=== PATIENT | female | born 1990 | race Hispanic/Latino ===

== ENCOUNTER 2017-05-11 23:53 | Emergency (ER) | payer OTHER ==
[2017-05-12 00:54] LABS: #Basophils 0.1 thou/uL (0.0-0.2); #Eosinphils 0.1 thou/uL (0.0-0.7); #Lymphocytes 2.8 thou/uL (1.20-3.40); #Monocytes 0.4 thou/uL (0.11-0.59); %Basophils 1.5 % (0.0-1.0); %Eosinophils 1.8 % (0.0-10.0); %Lymphocytes 43.6 % (21.0-51.0); %Monocytes 5.6 % (0.0-10.0); Hematocrit 37.5 % (36.0-47.0); Mean Platelet Volume 6.5 fL (7.4-10.4); Red Blood Cell (RBC) Count 3.86 mill/uL (4.20-5.40); White Blood Cell (WBC) Count 6.4 thou/uL (4.8-10.8)
[2017-05-12 01:08] LABS: Acetaminophen Less than 6.0 mcg/mL (10.0-30.0); CK (CPK) 125 U/L (29-168); Salicylate Less than 8.0 mg/dL (15.0-30.0)
[2017-05-12 01:10] LABS: ALT (SGPT) 14 U/L (8-55); AST (SGOT) 14 U/L (5-34); Alkaline Phosphatase 110 U/L (40-150); Anion Gap 13 mmol/L (10-20); BUN (Urea Nitrogen) 6 mg/dL (7.0-18.7); Bilirubin, Total Less than 0.2 mg/dL (0.2-1.2); Calc. Creatinine Clearance 0 mL/min (70-130); Calcium 8.3 mg/dL (7.8-10.44); Carbon Dioxide 19 mmol/L (22-29); Chloride 112 mmol/L (98-107); Estimated GFR-MDRD Greater than 90; Globulin 3.3 g/dL (2.4-3.5)
[2017-05-12 01:39] LABS: Bilirubin Negative (Negative); Blood, Urine Small (Negative); Glucose, Urine (Dipstick) Negative (Negative); Ketone, Urine Negative (Negative); Nitrite Negative (Negative); Protein, Urine (Dipstick) Negative (Neg-Trace); Urobilinogen 0.2 mg/dL (0.2-1.0)
[2017-05-12 01:46] LABS: Bacteria/HPF Rare-Few HPF (None Seen); Hyaline Casts/LPF 0-3 HYALINE CAST LPF (0-3 Hyaline); RBC/HPF 0-3 HPF (0-3); Squamous Epithelial 0-3 HPF (0-3); WBC/HPF 0-3 HPF (0-3)
[2017-05-12 01:58] LABS: Amphetamine Not Detected (NotDetected); Methadone Not Detected (NotDetected); Methamphetamine Not Detected (NotDetected)
== END 2017-05-12 01:46 | disposition home or self-care (01) ==
LOC: ERS 23:53
DX: F32.9 Major depressive disorder, single episode, unspecified (principal); Z79.899 Other long term (current) drug therapy
CPT/HCPCS: 36415; 80053; 80306; 80307; 81003; 81015; 81025; 82550; 84443; 85025; 93005

== ENCOUNTER 2017-05-18 03:20 | Inpatient (IN) | payer OTHER ==
[2017-05-18 04:18] LABS: #Basophils 0.1 thou/uL (0.0-0.2); #Eosinphils 0.2 thou/uL (0.0-0.7); #Lymphocytes 2.6 thou/uL (1.20-3.40); #Monocytes 0.5 thou/uL (0.11-0.59); #Neutrophils 3.9 thou/uL (1.40-6.50); %Eosinophils 2.1 % (0.0-10.0); %Lymphocytes 36.1 % (21.0-51.0); %Monocytes 7.4 % (0.0-10.0); Hematocrit 37.6 % (36.0-47.0); Mean Platelet Volume 6.7 fL (7.4-10.4); Red Blood Cell (RBC) Count 3.86 mill/uL (4.20-5.40); White Blood Cell (WBC) Count 7.3 thou/uL (4.8-10.8)
[2017-05-18 04:28] LABS: Bilirubin Negative (Negative); Blood, Urine Trace (Negative); Glucose, Urine (Dipstick) Negative (Negative); Ketone, Urine Negative (Negative); Nitrite Negative (Negative); Protein, Urine (Dipstick) Negative (Neg-Trace); Urobilinogen 0.2 mg/dL (0.2-1.0)
[2017-05-18 04:31] LABS: Bacteria/HPF None Seen HPF (None Seen); Hyaline Casts/LPF 0-3 HYALINE CAST LPF (0-3 Hyaline); Squamous Epithelial 0-3 HPF (0-3); WBC/HPF None Seen HPF (0-3)
[2017-05-18 04:31] LABS: ALT (SGPT) 13 U/L (8-55); AST (SGOT) 12 U/L (5-34); Alkaline Phosphatase 102 U/L (40-150); Anion Gap 13 mmol/L (10-20); BUN (Urea Nitrogen) 4 mg/dL (7.0-18.7); Bilirubin, Total Less than 0.2 mg/dL (0.2-1.2); Calc. Creatinine Clearance 0 mL/min (70-130); Calcium 8.3 mg/dL (7.8-10.44); Carbon Dioxide 19 mmol/L (22-29); Chloride 112 mmol/L (98-107); Estimated GFR-MDRD Greater than 90; Globulin 3.2 g/dL (2.4-3.5); Protein, Total 6.8 g/dL (6.0-8.3)
[2017-05-18 04:32] LABS: Acetaminophen Less than 6.0 mcg/mL (10.0-30.0); CK (CPK) 174 U/L (29-168); Salicylate Less than 8.0 mg/dL (15.0-30.0)
[2017-05-18 04:48] LABS: Amphetamine Not Detected (NotDetected); Methadone Not Detected (NotDetected); Methamphetamine Not Detected (NotDetected)
[2017-05-18] MEDS ORDERED: Pot Chloride/Pot Bicarb/Cit Ac 25 mEq Effervescent Tablet ONE (05:57)
--- NOTE | 2017-05-18 08:07 | HP-2 ---
CODE STATUS: FULL. PRIMARY CARE PHYSICIAN: [place]. ATTENDING: Filomena Montano D.O. RESIDENT: Mario Sadler D.O. HISTORIAN: Patient/EMS. CHIEF COMPLAINT: Suicide attempt. HISTORY OF PRESENT ILLNESS: This is a 27-year-old female who presents to the emergency department via EMS. She is a poor historian, prone to histrionics; however, she states that she was at a sikhism earlier in the evening to be healed for her seizures. After going home she got into a fight with her father and came to the ER because "nobody cares about her and she wanted to find out if people did care about her." She denies any alcohol or pill ingestion. She states that she does have a history with alcohol, but did not drink yesterday or this evening. She was seen in the ER, found to be hypotensive and responsive to a fluid resuscitation. Additionally, her [facility] skid adzer saw her in the ER. There is a concern by the ED doctor that her blood pressure was going to continue to be low and she needed to be observed for the blood pressure. Per the history that the emergency department physician got from, she took an unknown amount of clonazepam during the night in addition to drinking an unknown amount of alcohol. PAST MEDICAL HISTORY: Seizure disorder. ALLERGIES: No known drug allergies. MEDICATIONS: Clonazepam 2 mg b.i.d. and carbamazepine of unknown dose. SOCIAL HISTORY: She has a history of binge drinking. She denies any drug use. REVIEW OF SYSTEMS: She would not respond directly to any review of systems questions. PHYSICAL EXAMINATION: VITAL SIGNS: Blood pressure is 94/74, pulse 81, respiratory rate 19, T-max 97.5 , pulse ox 100% on room air, current weight 94 kilograms. GENERAL: The patient is alert and oriented x2 and in no apparent distress. HEENT: EOMI. Conjunctivae are within normal limits. She has horizontal nystagmus both left and right. CARDIOVASCULAR: Regular rate and rhythm without murmur or gallops. RESPIRATORY: Normal effort. LUNGS: Clear to auscultation bilaterally. No retractions. SKIN: Warm and dry. ABDOMEN: Soft with left upper quadrant tenderness. Bowel sounds in all quadrants. There is no mass or distention. EXTREMITIES: There is no edema. MUSCULOSKELETAL: Tone is normal. NEUROLOGIC: No focal neurological deficits. Cranial nerves II-XII are grossly intact. LABORATORY DATA: Hemoglobin 12.6, hematocrit 37.3, white count 7.3, platelets 301, MCV 97.6. CMP: Sodium 141, potassium 3.2, chloride 112, bicarbonate 19, BUN 4, creatinine 0.61, glucose 132, calcium 8.3, total serum protein 6.8, albumin 3.6, AST 12, ALT 13, alkaline phosphatase 102, total bilirubin less than 0.2. ETOH was initially 99 and is now 66. UDS is clear. CK 174. TSH 1.71. UA; specific gravity 1.007, blood trace, protein negative, leukocyte esterase negative, nitrites negative, ketones negative, glucose negative, RBCs 4 -6. No WBCs, no bacteria. EKG shows normal sinus rhythm. ASSESSMENT AND PLAN: This is a 27-year-old female with apparent alcohol intoxication. 1. Alcohol intoxication; ASE protocol without benzos. 2. Hypotension. Continue fluid resuscitation. Monitor. 3. Hypokalemia. She has been given 25 mEq in the ED. Monitor BMP. 4. Suicide attempt. Consult [facility]. They are aware that she is in the emergency room, she has had multiple previous suicide attempts. 5. Seizure disorder, states that she takes an unknown dose of carbamazepine. She usually has seizures during her menstrual cycle. Monitor for seizure and attempt to find her dose. MTDD
[2017-05-18 08:20] VITALS: BMI 39.0
[2017-05-18] MEDS ORDERED: Magnesium Sulfate 1 GM, Admixture Fee 1 EACH in Sodium Chloride 0.9% 100 ML IVPB SCH (09:00)
[2017-05-18] MEDS ORDERED: Thiamine HCl 200 MG/2 ML VIAL IM SCH (09:00)
[2017-05-18] MEDS ORDERED: Potassium Chloride 20 MEQ TAB PO SCH ×2 (11:00→11:15)
[2017-05-18] MEDS: Multivitamin W/ Minerals 1 TAB PO SCH (11:08)
[2017-05-18] MEDS: Sodium Chloride 0.9% 1,000 ML IV SCH ×5 (11:08→22:30)
[2017-05-18] MEDS: Folic Acid 1 MG TAB PO SCH (11:08)
--- NOTE | 2017-05-18 14:26 | HP ---
DATE OF SERVICE: 05/18/2017 CHIEF COMPLAINT: Overdose. HISTORY OF PRESENT ILLNESS: The patient is a 27-year-old female with a past medical history of radha r depression with past suicide attempts as well as a seizure disorder who presented to the emergency room via EMS after taking pills. The patient is a poor historian, but has changed her story depend ing on who she is talking to. It appears that the patient at one point told somebody that she took clonazepam, then called the ER and was brought in. This morning, she denies that the medication was clonazepam, but states that she did take a bunch of pills, but they were green pills and she does n ot know what they are called. The patient did drink overnight and have an elevated alcohol level wh en she got to the ER. In the ER, the patient was mildly hypotensive, which was responding to fluid boluses. Her [facility] furnace feeder happened to be in the ER when she came in and apparently has made init ial contact with the patient. She tells us that she just wanted to find out if somebody left her, c ared for her and that is why she took the pills. Her only other complaint at this time is some naus ea. She states that she vomited, but per nursing, she has not thrown up yet. PAST MEDICAL HISTORY: For the full past medical history, please see the resident's dictation. PHYSICAL EXAMINATION: VITAL SIGNS: Temperature 97.8, pulse 92, respiration rate 16, O2 sat 100% on room air, blood pressu re 91/62. GENERAL: The patient is awake, alert, and oriented to person and place, in no acute distress. EYES: The patient has mild horizontal nystagmus. Pupils are reactive to light and accommodation. Extraocular muscles are intact. ENT: Oropharynx and nasopharynx are without erythema or exudate. NECK: Supple without lymphadenopathy, thyromegaly or bruits. CARDIOVASCULAR: Regular rate and rhythm without murmurs, gallops, or rubs. LUNGS: Clear to auscultation bilaterally without wheezing or rhonchi. ABDOMEN: Soft, nontender to palpation with bowel sounds present in four quadrants. Of note, she di d have some left upper quadrant tenderness with Dr. Sadler overnight, but she is not tender at this time. EXTREMITIES: There is no clubbing, cyanosis or edema. MUSCULOSKELETAL: Patient has full range of motion of all extremities. Muscle strength is 5/5. NEUROLOGIC: Cranial nerves II through XII are grossly intact. LABORATORY DATA: 1. CBC: WBC 7.3, hemoglobin 12.6, hematocrit 37.6, and platelet count 301. 2. CMP: Sodium 141, potassium 3.2, chloride 112, bicarbonate 19, BUN 4, creatinine 0.61, glucose 1 32, calcium 8.3, total bilirubin less than 0.2. AST 12, ALT 13, alkaline phosphatase 102, total pro tein 6.8, albumin 3.6. 3. TSH 1.7096. 4. CK 174. 5. Urinalysis significant for trace blood. 6. Urine test negative. 7. Salicylate and acetaminophen are negative. Plasma alcohol was initially 99 and has decreased to 66. 8. Carbamazepine level 7.5. 9. UDS negative. ASSESSMENT AND PLAN: 1. Suicide attempt with overdose: The patient has been monitored in the IMCU. When she becomes me dically stable, we will consult [facility]. 2. Alcohol intoxication: The patient's blood alcohol level is decreasing. We will monitor for sig ns of withdrawal and DTs. 3. Hypokalemia: Patient's potassium is being replaced. 4. Seizure disorder. Per report, she has seizures around her menstrual period. We will try to fin d out the dose of her carbamazepine. 5. Please see the resident's dictation for the full history and physical, assessment and plan.
[2017-05-18] MEDS ORDERED: Ziprasidone 20 MG VIAL IM PRN (17:16)
[2017-05-18] MEDS ORDERED: Sterile Water 10 ML VIAL FS PRN ×2 (17:27→18:12)
[2017-05-18] MEDS ORDERED: Ziprasidone 20 MG VIAL IM SCH (18:15)
[2017-05-19] MEDS: Sodium Chloride 0.9% 1,000 ML IV SCH ×3 (05:19→20:53)
[2017-05-19 07:58] LABS: #Basophils 0.1 thou/uL (0.0-0.2); #Eosinphils 0.1 thou/uL (0.0-0.7); #Lymphocytes 1.9 thou/uL (1.20-3.40); #Monocytes 0.3 thou/uL (0.11-0.59); %Eosinophils 1.9 % (0.0-10.0); %Lymphocytes 34.5 % (21.0-51.0); %Monocytes 6.1 % (0.0-10.0); Hematocrit 36.9 % (36.0-47.0); Mean Platelet Volume 6.7 fL (7.4-10.4); Red Blood Cell (RBC) Count 3.75 mill/uL (4.20-5.40); White Blood Cell (WBC) Count 5.4 thou/uL (4.8-10.8)
[2017-05-19 08:17] LABS: ALT (SGPT) 10 U/L (8-55); AST (SGOT) 12 U/L (5-34); Alkaline Phosphatase 101 U/L (40-150); Anion Gap 11 mmol/L (10-20); BUN (Urea Nitrogen) 5 mg/dL (7.0-18.7); Bilirubin, Total 0.2 mg/dL (0.2-1.2); Calc. Creatinine Clearance 194 mL/min (70-130); Calcium 8.3 mg/dL (7.8-10.44); Carbon Dioxide 20 mmol/L (22-29); Chloride 113 mmol/L (98-107); Estimated GFR-MDRD Greater than 90; Protein, Total 6.3 g/dL (6.0-8.3)
[2017-05-19] MEDS ORDERED: Magnesium Oxide 400 MG TAB PO SCH (09:00)
[2017-05-19] MEDS ORDERED: FLU VACC QS2017-18 36 mo. & older 0.5 ML SYRINGE IM ONE (09:00)
[2017-05-19] MEDS: Folic Acid 1 MG TAB PO SCH (09:16)
[2017-05-19] MEDS: Multivitamin W/ Minerals 1 TAB PO SCH (09:16)
--- NOTE | 2017-05-19 10:01 | PDOC.FM ---
- Subjective Subjective: Patient doing well this morning. she denies any nausea, vomitting or diarrhea this morning. Denies abdominal pain. She states that her mood is better. - Objective MAR Reviewed: Yes Vital Signs & Weight: Vital Signs (12 hours) Temp Pulse Resp BP Pulse Ox 05/19/17 07:54 97.8 F 85 18 103/75 96 05/19/17 03:23 98.4 F 80 14 99/57 L 95 05/18/17 23:42 98.3 F 82 14 95/62 95 Weight Weight 96.887 kg I&O: 05/18/17 05/19/17 05/20/17 06:59 06:59 06:59 Intake Total 4272 Output Total 1020 Balance 3252 Result Diagrams: 05/19/17 07:39 05/19/17 07:39 EKG Reviewed by me: Yes Radiology Reviewed by me: Yes <Eze Vogel - Last Filed: 05/19/17 10:00> - Objective Vital Signs & Weight: Vital Signs (12 hours) Temp Pulse Resp BP Pulse Ox 05/19/17 07:54 97.8 F 85 18 103/75 96 05/19/17 07:53 97.8 F 85 18 97 05/19/17 03:23 98.4 F 80 14 99/57 L 95 Weight Weight 96.887 kg I&O: 05/18/17 05/19/17 05/20/17 06:59 06:59 06:59 Intake Total 4272 Output Total 1020 Balance 3252 Result Diagrams: 05/19/17 07:39 05/19/17 07:39 <Nupur Kunz - Last Filed: 05/19/17 14:49> Phys Exam - Physical Examination Constitutional: NAD HEENT: PERRLA, moist MMs Respiratory: no wheezing, no rales, no rhonchi, clear to auscultation bilateral Cardiovascular: RRR, no significant murmur, no rub Gastrointestinal: soft, non-tender, no distention, positive bowel sounds Musculoskeletal: no edema, pulses present Neurological: non-focal, normal sensation, moves all 4 limbs Psychiatric: A&O x 3 Deviation from normal: Patient's mood and affect is mildly depressed but she shows signs of improv smiles occasionally Skin: no rash <Eze Vogel - Last Filed: 05/19/17 10:00> Dx/Plan (1) Suicide attempt by drug ingestion Code(s): T50.902A - POISONING BY UNSP DRUG/MEDS/BIOL SUBST, SELF-HARM, INIT Status: Acute Qualifiers: Encounter type: initial encounter Qualified Code(s): T50.902A - Poisoning by unspecified drugs, medicaments and biological substances, intentional self- harm, initial encounter Plan: Per as well as family and patient can answer, she ingested a few lisinopril and zonesamide. She also was drinking alcohol, with initial level at 99. UDS was negative for everything, including benzodiazapines. She has had repeat labs this morning that were all WNL, including plasma etoh. Now medically cleared and will consult [facility]. (2) Alcohol intoxication Status: Resolved Plan: confirmed resolution today with plasma alcohol level. will continue oral thiamine (3) Hypokalemia Code(s): E87.6 - HYPOKALEMIA Status: Resolved (4) Seizure disorder Code(s): G40.909 - EPILEPSY, UNSP, NOT INTRACTABLE, WITHOUT STATUS EPILEPTICUS Status: Acute Plan: Patient takes her home carbamazepine and zonesimide. Will continue as outpatient. - Plan Plan: Medically cleared. Awaiting [facility] consultation <Eze Vogel - Last Filed: 05/19/17 10:00> Attending Addendum - Attending Addendum I personally evaluated the patient and discussed the management with Dr. Vogel. I agree with the History, Examination, Assessment and Plan documented above with any addition or exceptions noted below. The patient is feeling much better today. She notes that her mood is improved. Alcohol level back to normal. She is medically cleared. Will consult [facility]. <Nupur Kunz - Last Filed: 05/19/17 14:49>
[2017-05-19 15:45] VITALS: TEMP 98.5
[2017-05-19 20:23] VITALS: BP 107/72
--- NOTE | 2017-05-20 13:34 | DIS-2 ---
DATE OF ADMISSION: 05/18/2017 DATE OF DISCHARGE: 05/19/2017 ADMITTING ATTENDING: Dr. Nupur Kunz. DISCHARGE ATTENDING: Dr. Nupur Kunz. RESIDENT: Marbin Vogel M.D. PRIMARY CARE PHYSICIAN: Ker[place], [place]. CONSULTANTS: [facility], which patient also sees as an outpatient. PRIMARY DIAGNOSIS: Suicide attempt from pill and alcohol ingestion. SECONDARY DIAGNOSES: 1. Alcohol intoxication. 2. Hypokalemia, resolved. 3. Seizure disorder, stable. DISCHARGE MEDICATIONS: 1. Carbamazepine 600 mg p.o. b.i.d. 2. Zonisamide 300 mg p.o. q.a.m. 3. Zonisamide 400 mg p.o. at bedtime. 4. Citalopram 40 mg p.o. b.i.d. HOSPITAL COURSE: This is a 27-year-old female with history of depression and previous suicide attem pts who presented to the emergency department via EMS. She came after calling EMS after having dran k significant alcohol and taking unknown pills at the time of admission. On admission, she was foun d to have an alcohol level of 99. UDS was negative for all tested substances including benzodiazepi arianna, which had been initial best guess to what she might have taken. She was transferred to the [facility] for further workup of her overdose. At this point, she was still unknown what the medications wer e. Family was involved the next day and indicated that it was likely she took several pills of zoni samide and a different family member's lisinopril. The patient was continued to given fluids, had p otassium repleted, became less drowsy over the day and by the next morning felt back to normal. Fro m a medical standpoint, no nausea, vomiting, diarrhea or abdominal pain. She had normal mentation, was still feeling depressed and had some suicidal ideation. [facility] was consulted after this because s he was medically cleared. They recommended inpatient psychiatric treatment for continued suicidal i deation. DISCHARGE CONDITION: Medically cleared, but still in need of psychiatric treatment. Transferred to [facility]. Physician to physician checkout was given by Dr. Eze Vogel to Dr. Bess. DISCHARGE DIET: Regular. PRECAUTIONS: Recommend continued suicide precautions.
== END 2017-05-20 02:43 | DRG 918 ==
LOC: ERS 03:20 → IMCU/EMU 08:02
PROVIDERS: ADMIT Family Medicine; ATTEND Family Medicine
DX: T50.902A Poisoning by unspecified drugs, medicaments and biological substances, intentional self-harm, initial encounter (principal); I95.9 Hypotension, unspecified; T51.0X2A Toxic effect of ethanol, intentional self-harm, initial encounter; E87.6 Hypokalemia; G40.909 Epilepsy, unspecified, not intractable, without status epilepticus; F10.120 Alcohol abuse with intoxication, uncomplicated; F31.9 Bipolar disorder, unspecified
CPT/HCPCS: 36415; 80053; 80156; 80306; 80307; 81003; 81015; 81025; 82550; 84443; 85025; 93005; 96360; 96361; J3475; J7050

== ENCOUNTER 2017-07-07 19:36 | Inpatient (IN) | payer OTHER ==
[2017-07-07] MEDS ORDERED: Activated Charcoal/Sorbitol 25 GM/120 ML TUBE ONE ×2 (20:14→20:15)
[2017-07-07 20:28] LABS: #Basophils 0.1 thou/uL (0.0-0.2); #Eosinphils 0.2 thou/uL (0.0-0.7); #Lymphocytes 3.3 thou/uL (1.20-3.40); #Monocytes 0.4 thou/uL (0.11-0.59); #Neutrophils 3.3 thou/uL (1.40-6.50); %Basophils 1.2 % (0.0-1.0); %Eosinophils 2.3 % (0.0-10.0); %Lymphocytes 45.2 % (21.0-51.0); %Monocytes 5.9 % (0.0-10.0); Hematocrit 38.3 % (36.0-47.0); Mean Platelet Volume 6.7 fL (7.4-10.4); Red Blood Cell (RBC) Count 3.89 mill/uL (4.20-5.40); White Blood Cell (WBC) Count 7.3 thou/uL (4.8-10.8)
[2017-07-07 20:44] LABS: Acetaminophen Less than 6.0 mcg/mL (10.0-30.0); Magnesium 2.1 mg/dL (1.6-2.6); Salicylate Less than 8.0 mg/dL (15.0-30.0)
[2017-07-07 20:45] LABS: ALT (SGPT) 13 U/L (8-55); AST (SGOT) 15 U/L (5-34); Alkaline Phosphatase 99 U/L (40-150); Anion Gap 17 mmol/L (10-20); BUN (Urea Nitrogen) 4 mg/dL (7.0-18.7); Bilirubin, Total Less than 0.2 mg/dL (0.2-1.2); CK (CPK) 215 U/L (29-168); Calc. Creatinine Clearance 0 mL/min (70-130); Calcium 8.1 mg/dL (7.8-10.44); Carbon Dioxide 16 mmol/L (22-29); Chloride 115 mmol/L (98-107); Estimated GFR-MDRD Greater than 90; Globulin 3.3 g/dL (2.4-3.5); Protein, Total 7.1 g/dL (6.0-8.3)
[2017-07-07] MEDS ORDERED: Lorazepam 2 MG/ML VIAL ONE (20:54)
--- NOTE | 2017-07-07 21:34 | RAD ---
CHEST 1 VIEW: Date: 07/07/17 HISTORY: Overdose. COMPARISON: Chest 1 view dated 07/15/11. FINDINGS: Lungs are clear. No pneumothorax or effusion. Cardiac silhouette and mediastinal contour within jl l limits. There appears to be a vagal nerve stimulator. IMPRESSION: No acute intrathoracic abnormality. POS: [facility]
[2017-07-07] MEDS ORDERED: Ondansetron HCl/PF 4 MG/2 ML Vial IVP PRN (23:10)
[2017-07-07] MEDS ORDERED: Acetaminophen 325 MG TAB PO PRN (23:10)
--- NOTE | 2017-07-07 23:10 | PDOC.EVN ---
Event Note - Event Note Event Note: [id number] H&P Dictated 1. Intetional drug overdose 2. H/O Bipolar disorder 3. Metabolic acidosis plan: see orders
[2017-07-07] MEDS ORDERED: Sodium Chloride 0.9% 1,000 ML IV SCH (23:30)
[2017-07-08] MEDS ORDERED: Lorazepam 2 MG/ML VIAL SLOW IVP PRN (00:11)
[2017-07-08 00:37] VITALS: BMI 36.7
[2017-07-08 05:22] LABS: #Basophils 0.1 thou/uL (0.0-0.2); #Eosinphils 0.1 thou/uL (0.0-0.7); #Lymphocytes 1.9 thou/uL (1.20-3.40); #Monocytes 0.4 thou/uL (0.11-0.59); #Neutrophils 2.4 thou/uL (1.40-6.50); %Basophils 1.5 % (0.0-1.0); %Eosinophils 2.3 % (0.0-10.0); %Lymphocytes 39.1 % (21.0-51.0); %Monocytes 7.4 % (0.0-10.0); Hematocrit 33.9 % (36.0-47.0); Mean Platelet Volume 6.7 fL (7.4-10.4); Red Blood Cell (RBC) Count 3.45 mill/uL (4.20-5.40); White Blood Cell (WBC) Count 4.8 thou/uL (4.8-10.8)
[2017-07-08 05:39] LABS: Anion Gap 12 mmol/L (10-20); BUN (Urea Nitrogen) Less than 4 mg/dL (7.0-18.7); Calc. Creatinine Clearance 147 mL/min (70-130); Calcium 7.8 mg/dL (7.8-10.44); Carbon Dioxide 18 mmol/L (22-29); Chloride 115 mmol/L (98-107); Estimated GFR-MDRD 78
--- NOTE | 2017-07-08 06:13 | HP ---
DATE OF ADMISSION: 07/07/2017 CHIEF COMPLAINT: Drug overdose. HISTORY OF PRESENT ILLNESS: Patient is 27-year-old female with past medical history of bipolar disor jeffery, schizophrenia, depression, history of prior suicide attempt came to the ER because of intentiona l drug overdose. Patient said she had a fight with her father and wants to hurt herself, so she took 20 tablets of Tegretol and 20 tablets of zonisamide after taking the tablets patient told her father , so patient was brought to the ER. Upon ER arrival, ED physician evaluate the patient and the patie nt was given charcoal. ED physician did discussed to the Poison Control. Poison Control recommended to monitor patient's serum Tegretol levels. Patient currently denies any trouble breathing, denies any chest pain, denies any nausea, denies any vomiting. Patient was initially agitated, so patient w as given Ativan 1 mg IV push in the ER per ED physician. PAST MEDICAL HISTORY: As per HPI. PAST SURGICAL HISTORY: Reviewed. SOCIAL HISTORY: Positive for smoking, denies alcohol, denies any drugs. FAMILY HISTORY: Denies any depression. SOLIDS CONTROL TECHNICIAN HISTORY: She is 2, para 1, last menstrual period was approximately last month. MEDICATIONS: Reviewed. REVIEW OF SYSTEMS: Constitutional: Denies any fever, denies any chills. Eyes: Denies vision probl ems. Ears: Denies any hearing loss. Neck: Denies any neck pain. Cardiovascular System: Denies a ny chest pain, denies palpitations. Respiratory system: Denies any cough, denies any sputum product ion. Gastrointestinal: Denies any nausea, vomiting. Integumentary: Denies any rash. Genitourinar y: Denies dysuria. Musculoskeletal: Denies any joint deformities. Psychiatric: Denies anxiety. All other review of systems are reviewed and are negative. PHYSICAL EXAMINATION: CONSTITUTIONAL/VITAL SIGNS: At the time of H&P performed, blood pressure is 110/70, afebrile, pulse ox 97% on room air. GENERAL: The patient appears comfortable. HEENT: Pupils are equal, round, and reactive to light. Anterior nares patent. Nose normal. Ears n ormal. Teeth intact. Tongue is moist. NECK: Supple, no JVD. CARDIOVASCULAR SYSTEM: S1, S2 present. Regular rate and rhythm. No murmurs, no rubs, no gallops. RESPIRATORY SYSTEM: No wheezing, no rhonchi. Breath sounds bilaterally. GASTROINTESTINAL: Abdomen is soft, nontender, no guarding, no organomegaly, no masses felt. MUSCULOSKELETAL: No edema. INTEGUMENTARY: No rashes seen. PSYCHIATRIC: Mood is appropriate at this time. CRANIAL NERVE SYSTEM: Cranial nerves intact. Follows commands. Strength intact. Sensory intact. PSYCHIATRIC: Mood appropriate at this time. LABORATORY DATA: At the time of admission, white count 7.3, hemoglobin 13, and platelet count is 230 . Sodium 144, potassium 2.7, chloride 115, CO2 is 16, BUN of 14, creatinine 0.58. Creatine kinase i s 215. AST 15, ALT 13. Tegretol level 13.6, salicylates less than 8. ASSESSMENT AND PLAN: The patient is a 27-year-old female: 1. Intentional drug overdose. Plan to consult psych to evaluate the patient. Plan to place the pat ient on 24 hours . Plan to admit the patient to IMU, status post charcoal in the patient. We w ill monitor the patient closely. Plan to check Tegretol levels q.6 hours as recommended by Poison Co ntrol. 2. Metabolic acidosis, mild gap acidosis. Monitor bicarb level. Continue IV fluids. Check BMP in few hours, if it starts to worsen, we will start the patient on bicarbonate drip. No need at this ti me. We will check lactic acid level also. 3. History of bipolar disorder, schizophrenia. Monitor the patient closely. 4. History of anxiety. Plan anxiolytics. Case was discussed in detail with the patient.
[2017-07-08] MEDS: Enoxaparin Sodium 40 MG/0.4 ML SYRINGE SC SCH (09:22)
[2017-07-08] MEDS: Dextrose 5 %-0.45 % NaCl 1,000 ML IV SCH (12:49)
--- NOTE | 2017-07-08 21:05 | PDOC.PN ---
- Subjective Encounter Start Date: 07/08/17 Encounter Start Time: 14:00 Patient seen and examined. No new complaints. No overnight events - Objective MAR Reviewed: Yes Vital Signs & Weight: Vital Signs (12 hours) Temp Pulse Resp BP Pulse Ox 07/08/17 20:00 98.2 F 76 16 112/68 98 07/08/17 15:39 99.2 F 90 20 114/63 99 07/08/17 12:00 99.2 F 87 18 101/65 95 I&O: 07/07/17 07/08/17 07/09/17 06:59 06:59 06:59 Intake Total 900 1800 Output Total 1350 Balance -450 1800 Result Diagrams: 07/08/17 04:35 07/08/17 04:35 EKG Reviewed by me: Yes (Tele SR) Phys Exam - Physical Examination Constitutional: NAD Respiratory: no wheezing, no rales, no rhonchi, clear to auscultation bilateral Cardiovascular: RRR, no significant murmur, no rub no heaves Gastrointestinal: soft, non-tender, no distention, positive bowel sounds Musculoskeletal: no edema, pulses present Neurological: non-focal, normal sensation, moves all 4 limbs Psychiatric: normal affect, A&O x 3 Dx/Plan - Plan DVT proph w/lovenox, DVT proph w/SCDs IMPRESSION: 1. Drug OD/Suicidal attempt 2. Alcohol intoxication 3. Seizure disorder 4. Obesity BMI 36.7 5. Metabolic acidosis PLAN: * Confirm home meds * Cont to monitor * Recheck tegretol and alcohol level in AM * Consult [facility] in AM if stable * Cont suicide precautions * Resume selected home meds once confirmed to prevent seizures Review of Systems - Review of Systems Respiratory: negative: Cough, Dry, Shortness of Breath, Hemoptysis, SOB with Excertion, Pleuritic Pain, Sputum, Wheezing Cardiovascular: negative: Chest Pain, Palpitations, Orthopnea, Paroxysmal Noc. Dyspnea, Edema, Light Headedness, Other Gastrointestinal: negative: Nausea, Vomiting, Abdominal Pain, Diarrhea, Constipation, Melena, Hematochezia, Other - Medications/Allergies Allergies/Adverse Reactions: Allergies Allergy/AdvReac Type Severity Reaction Status Date / Time No Known Allergies Allergy Unverified 04/06/13 04:22 Medications: Current Medications Acetaminophen (Tylenol) 650 mg PO Q4H PRN PRN Reason: Headache/Fever or Pain Last Admin: 07/08/17 09:26 Dose: 650 mg Enoxaparin Sodium (Lovenox) 40 mg SC 0900 [facility] Last Admin: 07/08/17 09:22 Dose: 40 mg Dextrose/Sodium Chloride (D5 1/2 Ns) 1,000 mls @ 75 mls/hr IV .[id number] [facility] Last Admin: 07/08/17 12:49 Dose: 1,000 mls Ondansetron HCl (Zofran) 4 mg IVP Q6H PRN PRN Reason: Nausea/Vomiting Sodium Chloride (Flush - Normal Saline) 10 ml IVF Q12HR [facility] Last Admin: 07/08/17 20:30 Dose: Not Given Sodium Chloride (Flush - Normal Saline) 10 ml IVF PRN PRN PRN Reason: Saline Flush Last Admin: 07/08/17 00:43 Dose: 10 ml
[2017-07-09] MEDS: Dextrose 5 %-0.45 % NaCl 1,000 ML IV SCH ×2 (00:26→17:39)
[2017-07-09 02:45] LABS: Amphetamine Not Detected (NotDetected); Methadone Not Detected (NotDetected); Methamphetamine Not Detected (NotDetected)
[2017-07-09 04:56] LABS: #Eosinphils 0.1 thou/uL (0.0-0.7); #Lymphocytes 2.3 thou/uL (1.20-3.40); #Monocytes 0.4 thou/uL (0.11-0.59); #Neutrophils 2.9 thou/uL (1.40-6.50); %Basophils 0.7 % (0.0-1.0); %Eosinophils 2.6 % (0.0-10.0); %Monocytes 6.3 % (0.0-10.0); Hematocrit 34.2 % (36.0-47.0); Mean Platelet Volume 6.6 fL (7.4-10.4); Red Blood Cell (RBC) Count 3.52 mill/uL (4.20-5.40); White Blood Cell (WBC) Count 5.8 thou/uL (4.8-10.8)
[2017-07-09 05:12] LABS: Anion Gap 10 mmol/L (10-20); BUN (Urea Nitrogen) 5 mg/dL (7.0-18.7); CK (CPK) 120 U/L (29-168); Calc. Creatinine Clearance 225 mL/min (70-130); Carbon Dioxide 19 mmol/L (22-29); Chloride 112 mmol/L (98-107); Estimated GFR-MDRD Greater than 90
[2017-07-09] MEDS: Enoxaparin Sodium 40 MG/0.4 ML SYRINGE SC SCH (09:34)
[2017-07-09 15:39] VITALS: TEMP 99.1
--- NOTE | 2017-07-09 17:44 | DIS ---
DATE OF DISCHARGE: 07/09/2017 DISCHARGE DISPOSITION: To inpatient psych facility ([facility]). DISCHARGE MEDICATIONS: To be verified. Patient currently takes clonazepam 2 mg b.i.d., risperidone 0.25 mg b.i.d., Zoloft 150 mg daily, and brexpiprazole 3 mg daily. This list was provided by patient 's mother. The patient was seen and examined on the day of discharge. She denies any new complaints. No chest pain, shortness of breath, palpitations. BRIEF HOSPITAL COURSE: Patient is a 27-year-old female with recent hospitalization for drug overdose presented to the hospital with intentional drug overdose. The patient had an argument with her [facility] er, after which she took 20 tablets of Tegretol and another 20 tablets of zonisamide. She was also i ntoxicated with alcohol level of 212. Carbamazepine level on admission was 13.6. Urine drug screen was positive for benzodiazepines. The patient was monitored in the intermediate care unit per Poison Control recommendation. Tegretol level later came back to normal limits. Today, patient was evalua noel by [facility]. They recommended inpatient hospitalization. She will be discharged to [facility]. FINAL DIAGNOSES: 1. Drug overdose. 2. Alcohol intoxication. 3. Obesity with a BMI of 36.7. 4. Seizure disorder. 5. Metabolic acidosis, improved. 6. Elevated CK on admission at 215 improved. 7. Chronic anemia. 8. Abnormal carbamazepine level secondary to overdose. 9. Recent hospitalization for drug overdose. Total time coordinating the discharge of this patient was 35 minutes.
[2017-07-09 20:49] VITALS: BP 125/83
[2017-07-09] MEDS ORDERED: risperiDONE 0.25 MG TAB PO SCH (21:00)
[2017-07-09] MEDS ORDERED: clonazePAM 0.5 MG TAB PO SCH (21:00)
[2017-07-10] MEDS ORDERED: (Brexpiprazole [Rexulti] 3 MG) PO SCH (09:00)
== END 2017-07-09 22:46 | DRG 918 ==
LOC: ERS 19:36 → IMCU/EMU 07-08 00:27
PROVIDERS: ADMIT Internal Medicine; ATTEND Internal Medicine
DX: T42.1X2A Poisoning by iminostilbenes, intentional self-harm, initial encounter (principal); E87.2 Acidosis; E66.9 Obesity, unspecified; T42.6X2A Poisoning by other antiepileptic and sedative-hypnotic drugs, intentional self-harm, initial encounter; T51.0X2A Toxic effect of ethanol, intentional self-harm, initial encounter; F10.129 Alcohol abuse with intoxication, unspecified; Y90.7 Blood alcohol level of 200-239 mg/100 ml; Z68.36 Body mass index [BMI] 36.0-36.9, adult; G40.909 Epilepsy, unspecified, not intractable, without status epilepticus; D64.9 Anemia, unspecified; R79.89 Other specified abnormal findings of blood chemistry; F31.9 Bipolar disorder, unspecified; F20.9 Schizophrenia, unspecified; Z91.5 Personal history of self-harm; F17.210 Nicotine dependence, cigarettes, uncomplicated
CPT/HCPCS: 36415; 71010; 80048; 80053; 80156; 80306; 80307; 82550; 83605; 83735; 84443; 85025; 93005; J2060

== ENCOUNTER 2017-11-15 14:18 | Emergency (ER) | payer OTHER ==
[2017-11-15 15:10] LABS: #Lymphocytes 1.8 thou/uL (1.20-3.40); #Monocytes 0.6 thou/uL (0.11-0.59); #Neutrophils 7.8 thou/uL (1.40-6.50); %Basophils 0.3 % (0.0-1.0); %Eosinophils 0.4 % (0.0-10.0); %Lymphocytes 17.7 % (21.0-51.0); %Monocytes 5.9 % (0.0-10.0); %Neutrophils 75.8 % (42.0-75.0); Hemoglobin 13.6 g/dL (12.0-16.0); Mean Corpuscular HGB CONC 33.9 g/dL (32.0-36.0); Mean Corpuscular Hemoglobin 32.5 pg (27.0-31.0); Mean Corpuscular Volume 95.9 fl (81.0-99.0); Mean Platelet Volume 6.6 fL (7.4-10.4); Platelet Count 352 thou/uL (130-400); RBC Distribution Width 11.8 % (11.5-14.5); Red Blood Cell (RBC) Count 4.16 mill/uL (4.20-5.40); White Blood Cell (WBC) Count 10.2 thou/uL (4.8-10.8)
[2017-11-15 15:24] LABS: ALT (SGPT) 14 U/L (8-55); AST (SGOT) 14 U/L (5-34); Alkaline Phosphatase 102 U/L (40-150); Anion Gap 15 mmol/L (10-20); BUN (Urea Nitrogen) 4 mg/dL (7.0-18.7); Bilirubin, Total 0.2 mg/dL (0.2-1.2); Calc. Creatinine Clearance 0 mL/min (70-130); Calcium 9.3 mg/dL (7.8-10.44); Carbon Dioxide 23 mmol/L (22-29); Chloride 102 mmol/L (98-107); Estimated GFR-MDRD Greater than 90; Globulin 3.5 g/dL (2.4-3.5); Glucose 123 mg/dL (70-105); Protein, Total 7.5 g/dL (6.0-8.3); Sodium 136 mmol/L (136-145)
[2017-11-15 15:26] LABS: BHCG - Serum Negative (NEGATIVE); Pregs Control Background? CLEAR/WHITE (CLR/WHITE); Pregs Control Bar Appear? YES (CONTROL BAR)
[2017-11-15 15:37] LABS: Bilirubin Negative (Negative); Blood, Urine Small (Negative); Clarity CLEAR (Clear); Glucose, Urine (Dipstick) Negative (Negative); Leukocyte Negative (Negative); Nitrite Negative (Negative); Protein, Urine (Dipstick) Negative (Neg-Trace); Specific Gravity, Urine 1.008 (1.002-1.036); Urobilinogen 0.2 mg/dL (0.2-1.0)
[2017-11-15 15:43] LABS: Bacteria/HPF None Seen HPF (None Seen); Hyaline Casts/LPF 0-3 HYALINE CAST LPF (0-3 Hyaline); Squamous Epithelial 0-3 HPF (0-3); WBC/HPF None Seen HPF (0-3)
[2017-11-15 15:45] LABS: Carbamazepine-Tegretol 11.9 ug/mL (4.0-12.0)
== END 2017-11-15 18:00 | disposition home or self-care (01) ==
LOC: ERS 14:18
DX: R56.9 Unspecified convulsions (principal); F31.9 Bipolar disorder, unspecified; Z79.899 Other long term (current) drug therapy
CPT/HCPCS: 36415; 36416; 80053; 80156; 81003; 81015; 84703; 85025; 93005

== ENCOUNTER 2017-11-23 01:59 | Emergency (ER) | payer OTHER ==
[2017-11-23 02:44] LABS: Bilirubin Negative (Negative); Blood, Urine Trace (Negative); Clarity CLEAR (Clear); Glucose, Urine (Dipstick) Negative (Negative); Leukocyte Negative (Negative); Nitrite Negative (Negative); Protein, Urine (Dipstick) Negative (Neg-Trace); Specific Gravity, Urine 1.004 (1.002-1.036); Urobilinogen 0.2 mg/dL (0.2-1.0); pH, Urine 6.5 (5.0-9.0)
[2017-11-23 02:55] LABS: Amphetamine Not Detected (NotDetected); Bacteria/HPF None Seen HPF (None Seen); Barbiturates Screen Not Detected (NotDetected); Benzodiazepine Screen Not Detected (NotDetected); Cocaine Metabolite Screen Not Detected (NotDetected); Hyaline Casts/LPF NONE SEEN LPF (0-3 Hyaline); Medtox Control Line Valid? VALID (VALID); Medtox Reader # READER 1; Methadone Not Detected (NotDetected); Methamphetamine Not Detected (NotDetected); Opiate Screen Not Detected (NotDetected); Oxycodone Screen Not Detected (NotDetected); Phencyclidine (PCP) Not Detected (NotDetected); RBC/HPF 0-3 HPF (0-3); Squamous Epithelial 0-3 HPF (0-3); THC/Cannabinoid Screen Not Detected (NotDetected); Tricyclic Screen Not Detected (NotDetected); WBC/HPF 0-3 HPF (0-3)
[2017-11-23 03:09] LABS: #Basophils 0.1 thou/uL (0.0-0.2); #Eosinphils 0.1 thou/uL (0.0-0.7); #Lymphocytes 3.4 thou/uL (1.20-3.40); #Monocytes 0.6 thou/uL (0.11-0.59); #Neutrophils 3.4 thou/uL (1.40-6.50); %Basophils 1.1 % (0.0-1.0); %Eosinophils 1.9 % (0.0-10.0); %Lymphocytes 44.6 % (21.0-51.0); %Monocytes 7.4 % (0.0-10.0); %Neutrophils 45.1 % (42.0-75.0); Mean Corpuscular HGB CONC 35.1 g/dL (32.0-36.0); Mean Corpuscular Hemoglobin 32.9 pg (27.0-31.0); Mean Corpuscular Volume 93.6 fl (81.0-99.0); Mean Platelet Volume 6.3 fL (7.4-10.4); Platelet Count 373 thou/uL (130-400); RBC Distribution Width 11.8 % (11.5-14.5); Red Blood Cell (RBC) Count 3.97 mill/uL (4.20-5.40); White Blood Cell (WBC) Count 7.6 thou/uL (4.8-10.8)
[2017-11-23 03:11] LABS: Pregnancy Test - Urine (BHCG) Negative (Negative); Pregu Control Background? CLEAR/WHITE (CLR/WHITE); Pregu Control Bar Appear? YES (CONTROL BAR); Specific Gravity 1.004 (1.002-1.036)
[2017-11-23 03:22] LABS: ALT (SGPT) 13 U/L (8-55); AST (SGOT) 14 U/L (5-34); Acetaminophen Less than 6.0 mcg/mL (10.0-30.0); Alcohol 209 mg/dL (Less than 10); Alkaline Phosphatase 85 U/L (40-150); Anion Gap 17 mmol/L (10-20); BUN (Urea Nitrogen) 5 mg/dL (7.0-18.7); Bilirubin, Total 0.2 mg/dL (0.2-1.2); Calc. Creatinine Clearance 0 mL/min (70-130); Calcium 8.6 mg/dL (7.8-10.44); Carbon Dioxide 19 mmol/L (22-29); Chloride 99 mmol/L (98-107); Estimated GFR-MDRD Greater than 90; Globulin 3.2 g/dL (2.4-3.5); Glucose 114 mg/dL (70-105); Potassium 3.6 mmol/L (3.5-5.1); Protein, Total 7.2 g/dL (6.0-8.3); Salicylate Less than 8.0 mg/dL (15.0-30.0); Sodium 131 mmol/L (136-145)
--- NOTE | 2018-01-03 15:50 | EKG ---
Test Reason : Blood Pressure : / mmHG Vent. Rate : 091 BPM Atrial Rate : 091 BPM P-R Int : 152 ms QRS Dur : 092 ms QT Int : 374 ms P-R-T Axes : 055 046 031 degrees QTc Int : 460 ms Normal sinus rhythm Normal ECG Confirmed by SUE PATEL D.O. ([id number]), editor at large YASSINE DAS ([id number] on 01/03/2018 3:50:01 PM Referred By: Confirmed By:SUE PATEL D.O.
== END 2017-11-23 10:41 | disposition home or self-care (01) ==
LOC: ERS 01:59
DX: Z79.899 Other long term (current) drug therapy; F20.9 Schizophrenia, unspecified; F10.129 Alcohol abuse with intoxication, unspecified; F31.9 Bipolar disorder, unspecified
CPT/HCPCS: 36415; 80053; 80306; 80307; 81003; 81015; 81025; 82550; 84443; 85025; 93005

== ENCOUNTER 2018-06-29 17:23 | Emergency (ER) | payer OTHER ==
[2018-06-29 17:53] LABS: #Monocytes 0.3 thou/uL (0.11-0.59); #Neutrophils 9.6 thou/uL (1.40-6.50); %Basophils 0.3 % (0.0-1.0); %Eosinophils 0.2 % (0.0-10.0); %Lymphocytes 9.2 % (21.0-51.0); %Neutrophils 87.3 % (42.0-75.0); Hemoglobin 13.3 g/dL (12.0-16.0); Mean Corpuscular HGB CONC 33.1 g/dL (32.0-36.0); Mean Corpuscular Hemoglobin 32.5 pg (27.0-31.0); Mean Corpuscular Volume 98.1 fL (78.0-98.0); Mean Platelet Volume 6.4 fL (7.4-10.4); Platelet Count 434 thou/uL (130-400)
[2018-06-29 17:57] LABS: BHCG - Serum Negative (NEGATIVE); Pregs Control Background? CLEAR/WHITE (CLR/WHITE); Pregs Control Bar Appear? YES (CONTROL BAR)
[2018-06-29 18:13] LABS: ALT (SGPT) 24 U/L (8-55); AST (SGOT) 30 U/L (5-34); Albumin 4.3 g/dL (3.5-5.0); Alkaline Phosphatase 92 U/L (40-150); Anion Gap 18 mmol/L (10-20); BUN (Urea Nitrogen) 4 mg/dL (7.0-18.7); Bilirubin, Total 0.3 mg/dL (0.2-1.2); Calc. Creatinine Clearance 0 mL/min (70-130); Calcium 8.5 mg/dL (7.8-10.44); Carbon Dioxide 21 mmol/L (22-29); Chloride 100 mmol/L (98-107); Estimated GFR-MDRD Greater than 90; Globulin 3.7 g/dL (2.4-3.5); Glucose 157 mg/dL (70-105); Potassium 3.9 mmol/L (3.5-5.1); Sodium 135 mmol/L (136-145)
--- NOTE | 2018-06-29 18:26 | RAD ---
UPRIGHT PORTABLE CHEST ONE VIEW: History: 28-year-old female with history of witnessed grand mal seizure. Comparison: 07-07-17 FINDINGS: Inspiration is somewhat less than optimal. Left sided implantable device. The lungs are clear. Heart size is normal. No pleural effusion. IMPRESSION: No acute intrathoracic disease. Less inspiration, but otherwise stable from prior study. POS: [facility]
[2018-06-29] MEDS ORDERED: Acetaminophen 500 MG TAB ONE (18:28)
[2018-06-29] MEDS ORDERED: Bacitracin Zinc 1 Packet ONE (18:29)
== END 2018-06-29 18:43 | disposition home or self-care (01) ==
LOC: ERS 17:23
DX: R56.9 Unspecified convulsions (principal); R50.9 Fever, unspecified; F20.9 Schizophrenia, unspecified; F31.9 Bipolar disorder, unspecified; Z79.899 Other long term (current) drug therapy
CPT/HCPCS: 36416; 71045; 80053; 84146; 84703; 85025; 87040

== ENCOUNTER 2018-12-12 09:32 | Emergency (ER) | payer OTHER ==
[2018-12-12 10:09] LABS: #Eosinphils 0.1 thou/uL (0.0-0.7); #Lymphocytes 1.4 thou/uL (1.20-3.40); #Monocytes 0.6 thou/uL (0.11-0.59); #Neutrophils 7.4 thou/uL (1.40-6.50); %Basophils 0.1 % (0.0-1.0); %Eosinophils 0.6 % (0.0-10.0); %Lymphocytes 14.5 % (21.0-51.0); %Monocytes 6.2 % (0.0-10.0); %Neutrophils 78.6 % (42.0-75.0); Mean Corpuscular HGB CONC 33.3 g/dL (32.0-36.0); Mean Corpuscular Hemoglobin 32.8 pg (27.0-31.0); Mean Corpuscular Volume 98.5 fL (78.0-98.0); Mean Platelet Volume 6.6 fL (7.4-10.4); Platelet Count 340 thou/uL (130-400); RBC Distribution Width 11.9 % (11.5-14.5); Red Blood Cell (RBC) Count 3.97 mill/uL (4.20-5.40); White Blood Cell (WBC) Count 9.4 thou/uL (4.8-10.8)
--- NOTE | 2018-12-12 10:10 | CT ---
Head CT without contrast 12/12/2018: COMPARISON: 02/15/2017 HISTORY: Seizure, altered mental status, post ictal state TECHNIQUE: Axial CT imaging at 5 mm intervals from vertex through skull base without contrast FINDINGS: The imaged paranasal sinuses and mastoid air cells appear well aerated. There is evidence o f prior right temporal craniotomy. There is encephalomalacia within the left temporal lobe subjacent to this postoperative change, a stable finding. No intracranial hemorrhage, midline shift, or mass effect. IMPRESSION: Stable head CT as detailed above.
[2018-12-12 10:15] LABS: BHCG - Serum Negative (NEGATIVE); Pregs Control Background? CLEAR/WHITE (CLR/WHITE); Pregs Control Bar Appear? YES (CONTROL BAR)
[2018-12-12 10:31] LABS: ALT (SGPT) 15 U/L (8-55); AST (SGOT) 15 U/L (5-34); Alkaline Phosphatase 105 U/L (40-150); Anion Gap 19 mmol/L (10-20); BUN (Urea Nitrogen) 4 mg/dL (7.0-18.7); Bilirubin, Total 0.2 mg/dL (0.2-1.2); Calc. Creatinine Clearance 0 mL/min (70-130); Calcium 8.4 mg/dL (7.8-10.44); Carbamazepine-Tegretol 6.5 ug/mL (4.0-12.0); Carbon Dioxide 16 mmol/L (22-29); Chloride 104 mmol/L (98-107); Estimated GFR-MDRD Greater than 90; Globulin 3.3 g/dL (2.4-3.5); Glucose 135 mg/dL (70-105); Potassium 3.8 mmol/L (3.5-5.1); Protein, Total 7.3 g/dL (6.0-8.3); Sodium 135 mmol/L (136-145)
[2018-12-12 11:12] LABS: Bilirubin Negative (Negative); Blood, Urine Small (Negative); Clarity TURBID (Clear); Glucose, Urine (Dipstick) Negative (Negative); Leukocyte Negative (Negative); Nitrite Negative (Negative); Protein, Urine (Dipstick) Negative (Neg-Trace); Specific Gravity, Urine 1.016 (1.002-1.036); Urobilinogen 0.2 mg/dL (0.2-1.0)
[2018-12-12 11:15] LABS: Bacteria/HPF None Seen HPF (None Seen); Hyaline Casts/LPF 0-3 HYALINE CAST LPF (0-3 Hyaline); Pathc Cast-AUWi Flag 0.68 (0-2.49); Squamous Epithelial 0-3 HPF (0-3); WBC/HPF None Seen HPF (0-3)
[2018-12-12] MEDS ORDERED: carBAMazepine 200 MG TAB PO SCH (11:15)
[2018-12-12] MEDS ORDERED: Lorazepam 2 MG/ML VIAL ONE (11:19)
[2018-12-12 11:23] LABS: Amphetamine Not Detected (NotDetected); Barbiturates Screen Not Detected (NotDetected); Benzodiazepine Screen Not Detected (NotDetected); Cocaine Metabolite Screen Not Detected (NotDetected); Medtox Control Line Valid? VALID (VALID); Medtox Reader # READER 4; Methadone Not Detected (NotDetected); Methamphetamine Not Detected (NotDetected); Opiate Screen Not Detected (NotDetected); Oxycodone Screen Not Detected (NotDetected); Phencyclidine (PCP) Not Detected (NotDetected); THC/Cannabinoid Screen Not Detected (NotDetected); Tricyclic Screen Not Detected (NotDetected)
== END 2018-12-12 11:28 | disposition home or self-care (01) ==
LOC: ERS 09:32
DX: G40.909 Epilepsy, unspecified, not intractable, without status epilepticus (principal); F20.9 Schizophrenia, unspecified; F31.9 Bipolar disorder, unspecified; Z79.899 Other long term (current) drug therapy
CPT/HCPCS: 36415; 70450; 80053; 80156; 80306; 81003; 81015; 84146; 84703; 85025; 93005; 96361; 96374; J2060

== ENCOUNTER 2019-07-10 10:52 | Emergency (ER) | payer OTHER ==
[2019-07-10 11:35] LABS: #Lymphocytes 0.7 thou/uL (1.20-3.40); #Monocytes 0.3 thou/uL (0.11-0.59); #Neutrophils 11.2 thou/uL (1.40-6.50); %Basophils 0.1 % (0.0-1.0); %Eosinophils 0.2 % (0.0-10.0); %Lymphocytes 5.8 % (21.0-51.0); %Monocytes 2.5 % (0.0-10.0); %Neutrophils 91.4 % (42.0-75.0); Hemoglobin 12.5 g/dL (12.0-16.0); Mean Corpuscular HGB CONC 33.3 g/dL (32.0-36.0); Mean Corpuscular Hemoglobin 32.4 pg (27.0-31.0); Mean Corpuscular Volume 97.4 fL (78.0-98.0); Mean Platelet Volume 6.6 fL (7.4-10.4); Platelet Count 409 thou/uL (130-400); RBC Distribution Width 11.6 % (11.5-14.5); Red Blood Cell (RBC) Count 3.87 mill/uL (4.20-5.40); White Blood Cell (WBC) Count 12.2 thou/uL (4.8-10.8)
[2019-07-10 11:54] LABS: BHCG - Serum Negative (NEGATIVE); Pregs Control Background? CLEAR/WHITE (CLR/WHITE); Pregs Control Bar Appear? YES (CONTROL BAR)
--- NOTE | 2019-07-10 11:56 | CT ---
EXAM: Brain CTWithout contrast: HISTORY: Altered mental status in restraints COMPARISON: 12/12/2018 FINDINGS: The patient's head is considerably rotated to the right side. Post op changes involving the right temporal and parietal bones. Focal area of encephalomalacia in the anterior right temporal lobe which is stable. No focal mass or midline shift. No intra or extra-axial hemorrhage. Left maxillary sinus mucosal disease. The mastoids appear clear. IMPRESSION: No mass or bleed or other significant acute intracranial process. Left maxillary sinus mucosal diseas e. Stable postoperative changes and encephalomalacia on the right.
[2019-07-10 12:00] LABS: ALT (SGPT) 20 U/L (8-55); AST (SGOT) 20 U/L (5-34); Alkaline Phosphatase 104 U/L (40-110); Anion Gap 12 mmol/L (10-20); BUN (Urea Nitrogen) 6 mg/dL (7.0-18.7); Bilirubin, Total 0.2 mg/dL (0.2-1.2); Calc. Creatinine Clearance 0 mL/min (70-130); Calcium 8.2 mg/dL (7.8-10.44); Carbon Dioxide 20 mmol/L (22-29); Chloride 107 mmol/L (98-107); Estimated GFR-MDRD Greater than 90; Globulin 3.4 g/dL (2.4-3.5); Glucose 144 mg/dL (70-105); Potassium 3.8 mmol/L (3.5-5.1); Protein, Total 7.4 g/dL (6.0-8.3); Sodium 135 mmol/L (136-145)
[2019-07-10] MEDS ORDERED: Acetaminophen 500 MG TAB ONE (15:33)
== END 2019-07-10 15:45 | disposition home or self-care (01) ==
LOC: ERS 10:52
DX: R56.9 Unspecified convulsions (principal); F31.9 Bipolar disorder, unspecified; F20.9 Schizophrenia, unspecified; Z79.899 Other long term (current) drug therapy
CPT/HCPCS: 36415; 70450; 80053; 84703; 85025; 87804; 96360; 96361

== ENCOUNTER 2019-07-11 18:24 | Emergency (ER) | payer OTHER ==
[2019-07-11 18:58] LABS: #Lymphocytes 2.4 thou/uL (1.20-3.40); #Monocytes 0.7 thou/uL (0.11-0.59); #Neutrophils 11.3 thou/uL (1.40-6.50); %Basophils 0.2 % (0.0-1.0); %Eosinophils 0.2 % (0.0-10.0); %Lymphocytes 16.4 % (21.0-51.0); %Monocytes 4.7 % (0.0-10.0); %Neutrophils 78.5 % (42.0-75.0); Hemoglobin 13.8 g/dL (12.0-16.0); Mean Corpuscular HGB CONC 34.5 g/dL (32.0-36.0); Mean Corpuscular Hemoglobin 33.4 pg (27.0-31.0); Mean Corpuscular Volume 96.6 fL (78.0-98.0); Mean Platelet Volume 6.5 fL (7.4-10.4); Platelet Count 459 thou/uL (130-400); RBC Distribution Width 11.6 % (11.5-14.5); Red Blood Cell (RBC) Count 4.13 mill/uL (4.20-5.40); White Blood Cell (WBC) Count 14.4 thou/uL (4.8-10.8)
[2019-07-11 19:19] LABS: ALT (SGPT) 23 U/L (8-55); AST (SGOT) 25 U/L (5-34); Albumin 4.2 g/dL (3.5-5.0); Alkaline Phosphatase 98 U/L (40-110); Anion Gap 14 mmol/L (10-20); BUN (Urea Nitrogen) Less than 4 mg/dL (7.0-18.7); Bilirubin, Total 0.3 mg/dL (0.2-1.2); Calc. Creatinine Clearance 0 mL/min (70-130); Calcium 8.8 mg/dL (7.8-10.44); Carbamazepine-Tegretol Less than 1.9 ug/mL (4.0-12.0); Carbon Dioxide 20 mmol/L (22-29); Chloride 107 mmol/L (98-107); Estimated GFR-MDRD Greater than 90; Globulin 3.8 g/dL (2.4-3.5); Glucose 127 mg/dL (70-105); Potassium 3.8 mmol/L (3.5-5.1); Sodium 137 mmol/L (136-145)
[2019-07-11] MEDS ORDERED: Lorazepam 2 MG/ML VIAL ONE (19:34)
== END 2019-07-11 20:51 | disposition home or self-care (01) ==
LOC: ERS 18:24
DX: G40.909 Epilepsy, unspecified, not intractable, without status epilepticus (principal); R00.0 Tachycardia, unspecified; F20.9 Schizophrenia, unspecified; F31.9 Bipolar disorder, unspecified; Z79.899 Other long term (current) drug therapy
CPT/HCPCS: 36415; 80053; 80156; 85025; 96361; 96374; J2060

== ENCOUNTER 2019-08-20 12:49 | Emergency (ER) | payer OTHER ==
[2019-08-20 14:09] LABS: #Lymphocytes 0.7 thou/uL (1.20-3.40); #Monocytes 0.7 thou/uL (0.11-0.59); #Neutrophils 14.7 thou/uL (1.40-6.50); %Basophils 0.1 % (0.0-1.0); %Eosinophils 0.3 % (0.0-10.0); %Monocytes 4.5 % (0.0-10.0); %Neutrophils 91.1 % (42.0-75.0); Mean Corpuscular HGB CONC 33.4 g/dL (32.0-36.0); Mean Corpuscular Volume 95.7 fL (78.0-98.0); Platelet Count 335 thou/uL (130-400); Red Blood Cell (RBC) Count 4.07 mill/uL (4.20-5.40); White Blood Cell (WBC) Count 16.2 thou/uL (4.8-10.8)
[2019-08-20 14:38] LABS: ALT (SGPT) 30 U/L (8-55); AST (SGOT) 66 U/L (5-34); Albumin 3.9 g/dL (3.5-5.0); Alkaline Phosphatase 105 U/L (40-110); Anion Gap 16 mmol/L (10-20); BUN (Urea Nitrogen) 7 mg/dL (7.0-18.7); Bilirubin, Total 0.2 mg/dL (0.2-1.2); Calc. Creatinine Clearance 0 mL/min (70-130); Calcium 8.1 mg/dL (7.8-10.44); Carbon Dioxide 20 mmol/L (22-29); Chloride 104 mmol/L (98-107); Estimated GFR-MDRD Greater than 90; Globulin 3.9 g/dL (2.4-3.5); Glucose 115 mg/dL (70-105); Potassium 4.9 mmol/L (3.5-5.1); Protein, Total 7.8 g/dL (6.0-8.3); Sodium 135 mmol/L (136-145)
[2019-08-20] MEDS ORDERED: Acetaminophen 500 MG TAB ONE (15:30)
[2019-08-20 15:32] LABS: Bacteria/HPF None Seen HPF (None Seen); Bilirubin Negative (Negative); Blood, Urine 1+ (Negative); Clarity Clear (Clear); Glucose, Urine (Dipstick) Normal (Negative); Leukocyte Negative Leu/uL (Negative); Mucous/LPF Rare LPF (<2+); Nitrite Negative (Negative); Protein, Urine (Dipstick) 50 mg/dL (Neg-Trace); Squamous Epithelial 0-3 HPF (0-3); Urobilinogen Normal mg/dL (Less than 2); WBC/HPF 0-3 HPF (0-3)
[2019-08-20 15:36] LABS: Pregnancy Test - Urine (BHCG) Negative (Negative); Pregu Control Background? CLEAR/WHITE (CLR/WHITE); Pregu Control Bar Appear? YES (CONTROL BAR); Specific Gravity 1.016 (1.002-1.036)
== END 2019-08-20 16:43 | disposition home or self-care (01) ==
LOC: ERS 12:49
DX: R56.9 Unspecified convulsions (principal); F20.9 Schizophrenia, unspecified; F31.9 Bipolar disorder, unspecified; Z79.899 Other long term (current) drug therapy
CPT/HCPCS: 80053; 80156; 81003; 81015; 81025; 85025; 94760; 96360

== ENCOUNTER 2019-10-21 10:47 | Emergency (ER) | payer OTHER ==
[2019-10-21 11:19] LABS: #Lymphocytes 1.4 thou/uL (1.20-3.40); #Monocytes 0.5 thou/uL (0.11-0.59); #Neutrophils 8.9 thou/uL (1.40-6.50); %Basophils 0.3 % (0.0-1.0); %Eosinophils 0.3 % (0.0-10.0); %Lymphocytes 12.9 % (21.0-51.0); %Monocytes 4.4 % (0.0-10.0); %Neutrophils 82.1 % (42.0-75.0); Hemoglobin 12.8 g/dL (12.0-16.0); Mean Corpuscular HGB CONC 33.3 g/dL (32.0-36.0); Mean Corpuscular Hemoglobin 32.5 pg (27.0-31.0); Mean Corpuscular Volume 97.4 fL (78.0-98.0); Mean Platelet Volume 6.8 fL (7.4-10.4); Platelet Count 332 thou/uL (130-400); RBC Distribution Width 11.7 % (11.5-14.5); Red Blood Cell (RBC) Count 3.93 mill/uL (4.20-5.40); White Blood Cell (WBC) Count 10.8 thou/uL (4.8-10.8)
[2019-10-21 11:28] LABS: Bacteria/HPF None Seen HPF (None Seen); Bilirubin Negative (Negative); Blood, Urine 2+ (Negative); Clarity Turbid (Clear); Glucose, Urine (Dipstick) Normal (Negative); Leukocyte 25 Leu/uL (Negative); Nitrite Negative (Negative); Pregnancy Test - Urine (BHCG) Negative (Negative); Pregu Control Background? CLEAR/WHITE (CLR/WHITE); Pregu Control Bar Appear? YES (CONTROL BAR); Protein, Urine (Dipstick) 50 mg/dL (Neg-Trace); RBC/HPF Greater than 50 HPF (0-3); Specific Gravity 1.023 (1.002-1.036); Urobilinogen Normal mg/dL (Less than 2); WBC/HPF 0-3 HPF (0-3)
[2019-10-21 11:45] LABS: ALT (SGPT) 22 U/L (8-55); AST (SGOT) 26 U/L (5-34); Albumin 3.8 g/dL (3.5-5.0); Alkaline Phosphatase 111 U/L (40-110); Anion Gap 16 mmol/L (10-20); BUN (Urea Nitrogen) 9 mg/dL (7.0-18.7); Bilirubin, Total 0.3 mg/dL (0.2-1.2); Calc. Creatinine Clearance 0 mL/min (70-130); Calcium 8.5 mg/dL (7.8-10.44); Carbon Dioxide 21 mmol/L (22-29); Chloride 108 mmol/L (98-107); Estimated GFR-MDRD 79; Globulin 3.4 g/dL (2.4-3.5); Glucose 134 mg/dL (70-105); Lipase 21 U/L (8-78); Potassium 3.5 mmol/L (3.5-5.1); Protein, Total 7.2 g/dL (6.0-8.3); Sodium 141 mmol/L (136-145)
[2019-10-21] MEDS ORDERED: Mag-Al 1200 mg/1200 mg/30 ML UDCUP ONE (12:41)
[2019-10-21] MEDS ORDERED: Lidocaine Viscous Sol 2% 15 ml UD Cup ONE (12:41)
== END 2019-10-21 13:05 | disposition home or self-care (01) ==
LOC: ERS 10:47
DX: R10.13 Epigastric pain (principal); R10.12 Left upper quadrant pain; F31.9 Bipolar disorder, unspecified
CPT/HCPCS: 80053; 81003; 81015; 81025; 83690; 85025

== ENCOUNTER 2019-11-01 16:50 | Emergency (ER) | payer OTHER ==
[2019-11-01 17:48] LABS: #Lymphocytes 1.1 thou/uL (1.20-3.40); #Monocytes 0.5 thou/uL (0.11-0.59); #Neutrophils 10.1 thou/uL (1.40-6.50); %Basophils 0.3 % (0.0-1.0); %Eosinophils 0.2 % (0.0-10.0); %Lymphocytes 9.6 % (21.0-51.0); %Monocytes 4.5 % (0.0-10.0); %Neutrophils 85.3 % (42.0-75.0); Hemoglobin 13.2 g/dL (12.0-16.0); Mean Corpuscular HGB CONC 34.7 g/dL (32.0-36.0); Mean Corpuscular Hemoglobin 33.2 pg (27.0-31.0); Mean Corpuscular Volume 95.5 fL (78.0-98.0); Mean Platelet Volume 6.8 fL (7.4-10.4); Platelet Count 392 thou/uL (130-400); RBC Distribution Width 11.4 % (11.5-14.5); Red Blood Cell (RBC) Count 3.99 mill/uL (4.20-5.40); White Blood Cell (WBC) Count 11.8 thou/uL (4.8-10.8)
[2019-11-01 18:13] LABS: Carbamazepine-Tegretol 5.2 ug/mL (4.0-12.0)
[2019-11-01 18:15] LABS: ALT (SGPT) 33 U/L (8-55); AST (SGOT) 32 U/L (5-34); Alkaline Phosphatase 121 U/L (40-110); Anion Gap 16 mmol/L (10-20); BUN (Urea Nitrogen) 5 mg/dL (7.0-18.7); Bilirubin, Total 0.2 mg/dL (0.2-1.2); Calc. Creatinine Clearance 0 mL/min (70-130); Calcium 8.5 mg/dL (7.8-10.44); Carbon Dioxide 22 mmol/L (22-29); Chloride 99 mmol/L (98-107); Estimated GFR-MDRD Greater than 90; Globulin 3.6 g/dL (2.4-3.5); Glucose 123 mg/dL (70-105); Potassium 4.2 mmol/L (3.5-5.1); Protein, Total 7.6 g/dL (6.0-8.3); Sodium 133 mmol/L (136-145)
[2019-11-01 18:25] LABS: Acetaminophen Less than 6.0 mcg/mL (10.0-30.0); Alcohol Less than 10 mg/dL (Less than 10); Lipase 29 U/L (8-78); Magnesium 1.8 mg/dL (1.6-2.6); Salicylate Less than 8.0 mg/dL (15.0-30.0)
[2019-11-01 18:27] LABS: Bilirubin Negative (Negative); Blood, Urine Moderate (Negative); Clarity Clear (Clear); Glucose, Urine (Dipstick) Negative (Negative); Leukocyte Negative (Negative); Nitrite Negative (Negative); Protein, Urine (Dipstick) 100 mg/dL (Neg-Trace); Urobilinogen 0.2 mg/dL (Less than 2)
[2019-11-01 18:29] LABS: RBC/HPF 0-3 HPF (0-3); Squamous Epithelial 0-3 HPF (0-3); WBC/HPF 0-3 HPF (0-3)
[2019-11-01 18:32] LABS: Bacteria/HPF 1+ HPF (None Seen)
[2019-11-01 18:37] LABS: Amphetamine Not Detected (NotDetected); Barbiturates Screen Not Detected (NotDetected); Benzodiazepine Screen Detected (NotDetected); Cocaine Metabolite Screen Not Detected (NotDetected); Medtox Control Line Valid? VALID (VALID); Medtox Reader # READER 1; Methadone Not Detected (NotDetected); Methamphetamine Not Detected (NotDetected); Opiate Screen Not Detected (NotDetected); Oxycodone Screen Not Detected (NotDetected); Phencyclidine (PCP) Not Detected (NotDetected); THC/Cannabinoid Screen Not Detected (NotDetected); Tricyclic Screen Not Detected (NotDetected)
--- NOTE | 2019-11-01 18:49 | RAD ---
2 views right fifth finger: 11/01/2019 COMPARISON: None HISTORY: Injury, trauma, pain FINDINGS: Soft tissue irregularity overlies the fifth proximal phalanx, consistent with extensive lac eration. No associated fracture/dislocation or radiopaque foreign body. IMPRESSION: Soft tissue laceration.
[2019-11-01] MEDS ORDERED: Lidocaine 1% PF 5 ML VIAL ONE (18:56)
[2019-11-01] MEDS ORDERED: Adacel (T-DAP) 0.5 ML SYRINGE ONE (19:00)
--- NOTE | 2019-11-01 19:18 | CT ---
Head CT without contrast 11/01/2019: COMPARISON: 07/10/2019 HISTORY: Altered mental status, seizure TECHNIQUE: Axial CT imaging at 5 mm intervals from vertex through skull base without contrast FINDINGS: The imaged paranasal sinuses and mastoid air cells are well-aerated. 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 No intracranial hemorrhage, midline shift, or mass effect. CSF containing space within the left lateral aspect of the posterior fossa is prominent, unchanged when compared to numerous prior examinations. IMPRESSION: Stable head CT-no intracranial hemorrhage or displaced calvarial fracture.
[2019-11-01] MEDS ORDERED: Bacitracin 1 PK ONE (19:49)
== END 2019-11-01 20:30 | disposition home or self-care (01) ==
LOC: ERS 16:50
DX: S61.216A Laceration without foreign body of right little finger without damage to nail, initial encounter (principal); N39.0 Urinary tract infection, site not specified; R56.9 Unspecified convulsions; F31.9 Bipolar disorder, unspecified; Z79.899 Other long term (current) drug therapy; W22.8XXA Striking against or struck by other objects, initial encounter
CPT/HCPCS: 12001; 36415; 51701; 70450; 80053; 80156; 80306; 80307; 81003; 81015; 83690; 83735; 84146; 84443; 85025; 90471; 90715; A4353; J2001

== ENCOUNTER 2020-12-05 09:48 | Inpatient (IN) | payer OTHER ==
[2020-12-05] MEDS ORDERED: levETIRAcetam in NS 100 ML ONE ×2 (09:56→11:38)
[2020-12-05] MEDS ORDERED: Adenosine 6 MG/2 ML VIAL ONE (10:04)
[2020-12-05 10:38] LABS: Hemoglobin 15.5 g/dL (12.0-16.0); Mean Corpuscular HGB CONC 32.7 g/dL (32.0-36.0); Mean Corpuscular Hemoglobin 33.6 pg (27.0-31.0); RBC Distribution Width 11.6 % (11.5-14.5); Red Blood Cell (RBC) Count 4.62 mill/uL (4.20-5.40)
[2020-12-05 10:53] LABS: White Blood Cell (WBC) Count 27.7 thou/uL (4.8-10.8)
[2020-12-05 11:01] LABS: ALT (SGPT) 35 U/L (8-55); AST (SGOT) 64 U/L (5-34); Albumin 4.3 g/dL (3.5-5.0); Alkaline Phosphatase 142 U/L (40-110); BUN (Urea Nitrogen) 9 mg/dL (7.0-18.7); Bilirubin, Total 0.2 mg/dL (0.2-1.2); Calc. Creatinine Clearance 0 mL/min (70-130); Calcium 9.3 mg/dL (7.8-10.44); Carbon Dioxide Less than 8 mmol/L (22-29); Chloride 102 mmol/L (98-107); Globulin 4.9 g/dL (2.4-3.5); Glucose 291 mg/dL (70-105); Potassium 4.7 mmol/L (3.5-5.1); Protein, Total 9.2 g/dL (6.0-8.3); Sodium 137 mmol/L (136-145)
[2020-12-05 11:13] LABS: Carbamazepine-Tegretol 5.7 ug/mL (4.0-12.0)
[2020-12-05 11:16] LABS: Band 12 % (5-11); Eosinophils 2 % (0-10); Lymphocytes 26 % (21-51); MDiff Complete? YES; Macrocytosis SLIGHT = 6-15 cells (100X) (0-5/hpf); Mean Platelet Volume 6.8 fL (7.4-10.4); Monocytes 5 % (0-10); Neutrophil 55 % (42-75); Platelet Count 552 thou/uL (130-400); Platelet Morphology Comment Appears Increased; Polychromasia SLIGHT = 2-3 cells (100X) (0-2/hpf)
[2020-12-05] MEDS ORDERED: Cefepime 2 GM VIAL ONE (11:37)
[2020-12-05 11:38] LABS: Acetaminophen Less than 6.0 mcg/mL (10.0-30.0); Alcohol Less than 10 mg/dL (Less than 10); Salicylate Less than 8.0 mg/dL (15.0-30.0)
[2020-12-05] MEDS ORDERED: Piperacillin/Tazobactam 4.5 GM VIAL ONE (12:11)
[2020-12-05 12:56] LABS: Actual Bicarbonate (HCO3v) 17 mEq/L (22-28); Analyzer IN Cardio ER; Base Excess -7.1 mEq/L (-2.0 to +3.0); Calcium, Ionized (venous) 0.97 mmol/L (1.16-1.32); Chloride (VBG) 111 mmol/L (98-106); Hemoglobin (Hb) 14.5 g/dL (11.7-15.5); Potassium (VBG) 4.28 mmol/L (3.70-5.30); pH (venous) 7.35 (7.32-7.43)
[2020-12-05 13:06] LABS: Bacteria/HPF None Seen HPF (None Seen); Bilirubin Negative (Negative); Blood, Urine 1+ (Negative); Clarity Clear (Clear); Glucose, Urine (Dipstick) Normal (Negative); Ketone, Urine Negative (Negative); Leukocyte Negative Leu/uL (Negative); Nitrite Negative (Negative); Protein, Urine (Dipstick) 20 mg/dL (Neg-Trace); RBC/HPF 0-3 HPF (0-3); Specific Gravity, Urine 1.013 (1.002-1.036); Squamous Epithelial 0-3 HPF (0-3); Urobilinogen Normal mg/dL (Less than 2); WBC/HPF 0-3 HPF (0-3)
[2020-12-05 13:22] LABS: Amphetamine Not Detected (NotDetected); Barbiturates Screen Not Detected (NotDetected); Benzodiazepine Screen Detected (NotDetected); Cocaine Metabolite Screen Not Detected (NotDetected); Medtox Control Line Valid? VALID (VALID); Medtox Reader # READER 1; Methadone Not Detected (NotDetected); Methamphetamine Not Detected (NotDetected); Opiate Screen Not Detected (NotDetected); Oxycodone Screen Not Detected (NotDetected); Phencyclidine (PCP) Not Detected (NotDetected); THC/Cannabinoid Screen Not Detected (NotDetected); Tricyclic Screen Not Detected (NotDetected)
[2020-12-05 15:05] LABS: Actual Bicarbonate (HCO3v) 19 mEq/L (22-28); Analyzer IN Cardio ER; Base Excess -4.4 mEq/L (-2.0 to +3.0); Calcium, Ionized (venous) 0.96 mmol/L (1.16-1.32); Chloride (VBG) 110 mmol/L (98-106); Hemoglobin (Hb) 13.4 g/dL (11.7-15.5); Potassium (VBG) 4.05 mmol/L (3.70-5.30); Sodium 137.3 mmol/L (133-146)
[2020-12-05] MEDS ORDERED: Ondansetron PF 4 MG/2 ML Vial IVP PRN (17:32)
[2020-12-05] MEDS ORDERED: Calcium Carbonate 500 MG ChewTAB PO PRN (17:32)
[2020-12-05] MEDS ORDERED: Bisacodyl 10 MG SUPP PR PRN (17:32)
[2020-12-05] MEDS ORDERED: Lorazepam 2 MG/ML VIAL SLOW IVP PRN (17:32)
[2020-12-05] MEDS ORDERED: Senokot S 8.6-50 MG TAB PO PRN (17:32)
[2020-12-05] MEDS ORDERED: Acetaminophen 325 MG TAB PO PRN (17:32)
[2020-12-05] MEDS ORDERED: HYDROcodone/Acetaminophen 5/325 mg Tablet PO PRN (17:32)
[2020-12-05] MEDS ORDERED: Guaifenesin DM 100-10/5 ML UDCUP PO PRN (17:32)
[2020-12-05] MEDS ORDERED: Dextrose 50% Abboject 50 ML SYRINGE SLOW IVP PRN (17:32)
[2020-12-05] MEDS ORDERED: HumaLOG 300 UNITS/3 ML VIAL SC PRN ×2 (17:32)
[2020-12-05] MEDS ORDERED: Dextrose 5% in Water 1,000 ML IV PRN (17:32)
[2020-12-05 17:59] LABS: Hemoglobin A1c 5.5 % (4.0-6.0)
[2020-12-05 18:05] LABS: BHCG - Serum Negative (NEGATIVE); Pregs Control Background? CLEAR/WHITE (CLR/WHITE); Pregs Control Bar Appear? YES (CONTROL BAR)
[2020-12-05] MEDS ORDERED: Ibuprofen 600 MG TAB PO SCH (18:15)
[2020-12-05 20:55] LABS: Lactic Acid 3.2 mmol/L (0.5-2.2)
[2020-12-05 21:07] VITALS: BMI 40.8
[2020-12-05] MEDS: Sodium Chloride 0.9% 1,000 ML IV SCH (21:29)
[2020-12-05] MEDS: Cefepime 2 GM in Sodium Chloride 0.9% 100 ML IVPB SCH (21:29)
[2020-12-05] MEDS: Zonisamide 100 MG CAP PO SCH (22:49)
[2020-12-06 02:28] LABS: SARS-CoV-2 PCR by NAA Not Detected (NotDetected)
[2020-12-06] MEDS: Cefepime 2 GM in Sodium Chloride 0.9% 100 ML IVPB SCH ×2 (04:27→12:11)
[2020-12-06] MEDS: Sodium Chloride 0.9% 1,000 ML IV SCH ×2 (04:27→17:52)
[2020-12-06 05:35] LABS: #Eosinphils 0.1 thou/uL (0.0-0.7); #Lymphocytes 2.7 thou/uL (1.20-3.40); #Monocytes 0.7 thou/uL (0.11-0.59); #Neutrophils 5.6 thou/uL (1.40-6.50); %Basophils 0.2 % (0.0-1.0); %Eosinophils 1.1 % (0.0-10.0); %Monocytes 8.2 % (0.0-10.0); %Neutrophils 61.6 % (42.0-75.0); Hemoglobin 11.6 g/dL (12.0-16.0); Mean Corpuscular HGB CONC 34.4 g/dL (32.0-36.0); Mean Corpuscular Hemoglobin 34.1 pg (27.0-31.0); Mean Corpuscular Volume 99.3 fL (78.0-98.0); Mean Platelet Volume 6.7 fL (7.4-10.4); Platelet Count 321 thou/uL (130-400); RBC Distribution Width 11.5 % (11.5-14.5); Red Blood Cell (RBC) Count 3.41 mill/uL (4.20-5.40); White Blood Cell (WBC) Count 9.1 thou/uL (4.8-10.8)
[2020-12-06 05:58] LABS: Anion Gap 12 mmol/L (10-20); BUN (Urea Nitrogen) 4 mg/dL (7.0-18.7); Calc. Creatinine Clearance 214 mL/min (70-130); Carbon Dioxide 21 mmol/L (22-29); Chloride 105 mmol/L (98-107); Glucose 117 mg/dL (70-105); Potassium 3.2 mmol/L (3.5-5.1); Sodium 135 mmol/L (136-145)
[2020-12-06] MEDS ORDERED: Enoxaparin Sodium 40 MG/0.4 ML SYRINGE SC SCH (09:00)
[2020-12-06] MEDS ORDERED: Aripiprazole 15 MG TAB PO SCH (09:00)
[2020-12-06] MEDS ORDERED: OLANZapine 5 MG TAB PO SCH (09:00)
[2020-12-06] MEDS ORDERED: risperiDONE 3 MG TAB PO SCH (09:00)
[2020-12-06] MEDS: carBAMazepine 200 MG TAB PO SCH ×2 (09:11→18:36)
[2020-12-06] MEDS: Zonisamide 100 MG CAP PO SCH (09:12)
[2020-12-06] MEDS ORDERED: Vancomycin 1 GM in Premix Bag 1 BAG IVPB SCH (10:00)
[2020-12-06] MEDS ORDERED: Potassium Chloride 20 MEQ TAB PO SCH (11:45)
[2020-12-06 15:32] VITALS: BP 122/76; TEMP 98.3
== END 2020-12-06 15:20 | disposition home or self-care (01) | DRG 101 ==
LOC: ERS 09:48 → 2NO 17:32
PROVIDERS: ADMIT Internal Medicine; ATTEND Student in an Organized Health Care Education/Training Program
DX: G40.901 Epilepsy, unspecified, not intractable, with status epilepticus (principal); F31.9 Bipolar disorder, unspecified; F20.9 Schizophrenia, unspecified; F17.210 Nicotine dependence, cigarettes, uncomplicated; E87.6 Hypokalemia; T42.6X6A Underdosing of other antiepileptic and sedative-hypnotic drugs, initial encounter; F10.129 Alcohol abuse with intoxication, unspecified; Y90.0 Blood alcohol level of less than 20 mg/100 ml; Z79.899 Other long term (current) drug therapy; Z81.8 Family history of other mental and behavioral disorders
CPT/HCPCS: 36415; 36416; 51701; 70450; 71045; 80048; 80053; 80156; 80306; 80307; 81003; 81015; 82805; 83036; 83605; 83735; 84145; 84443; 84484; 84703; 85025; 87040; 87086; 87149; 87635; 93005; 95712; 95819; 95957; 96365; 96375; J0153; J0692; J1650; J1953; J2543; J3370; J3490; J7030; U0003; U0005

== ENCOUNTER 2021-07-23 23:09 | Emergency (ER) | payer OTHER ==
[2021-07-24 00:28] LABS: #Basophils 0.1 thou/uL (0.0-0.2); #Eosinphils 0.3 thou/uL (0.0-0.7); #Lymphocytes 3.2 thou/uL (1.20-3.40); #Monocytes 0.5 thou/uL (0.11-0.59); #Neutrophils 4.4 thou/uL (1.40-6.50); %Basophils 0.9 % (0.0-1.0); %Eosinophils 3.8 % (0.0-10.0); %Lymphocytes 37.7 % (21.0-51.0); %Neutrophils 51.7 % (42.0-75.0); ALT (SGPT) 23 U/L (8-55); AST (SGOT) 29 U/L (5-34); Albumin 3.9 g/dL (3.5-5.0); Alkaline Phosphatase 81 U/L (40-110); Anion Gap 17 mmol/L (10-20); BUN (Urea Nitrogen) Less than 4 mg/dL (7.0-18.7); Bilirubin, Total 0.3 mg/dL (0.2-1.2); Calc. Creatinine Clearance 0 mL/min (70-130); Calcium 8.7 mg/dL (7.8-10.44); Carbon Dioxide 22 mmol/L (22-29); Chloride 103 mmol/L (98-107); Globulin 3.4 g/dL (2.4-3.5); Glucose 114 mg/dL (70-105); Hemoglobin 13.4 g/dL (12.0-16.0); Mean Corpuscular HGB CONC 35.7 g/dL (32.0-36.0); Mean Corpuscular Hemoglobin 35.9 pg (27.0-31.0); Mean Platelet Volume 6.4 fL (7.4-10.4); Platelet Count 413 thou/uL (130-400); Potassium 3.9 mmol/L (3.5-5.1); Protein, Total 7.3 g/dL (6.0-8.3); RBC Distribution Width 12.2 % (11.5-14.5); Red Blood Cell (RBC) Count 3.75 mill/uL (4.20-5.40); Sodium 138 mmol/L (136-145); White Blood Cell (WBC) Count 8.5 thou/uL (4.8-10.8)
[2021-07-24 00:29] LABS: Acetaminophen Less than 6.0 mcg/mL (10.0-30.0); Alcohol 108 mg/dL (Less than 10); Salicylate Less than 8.0 mg/dL (15.0-30.0)
[2021-07-24 00:31] LABS: Amphetamine Not Detected (NotDetected); Barbiturates Screen Not Detected (NotDetected); Benzodiazepine Screen Not Detected (NotDetected); Cocaine Metabolite Screen Not Detected (NotDetected); Methadone Not Detected (NotDetected); Methamphetamine Not Detected (NotDetected); Opiate Screen Not Detected (NotDetected); Oxycodone Screen Not Detected (NotDetected); Phencyclidine (PCP) Not Detected (NotDetected); Pregnancy Test - Urine (BHCG) Negative (Negative); Pregu Control Background? CLEAR/WHITE (CLR/WHITE); Pregu Control Bar Appear? YES (CONTROL BAR); Specific Gravity 1.005 (1.002-1.036); THC/Cannabinoid Screen Not Detected (NotDetected); Tricyclic Screen Not Detected (NotDetected)
[2021-07-24 03:26] LABS: Carbamazepine-Tegretol 17.6 ug/mL (4.0-12.0)
[2021-07-24 07:03] LABS: SARS-CoV-2 NAA Rapid Test Not Detected (NotDetected)
[2021-07-24 08:12] LABS: Carbamazepine-Tegretol 23.4 ug/mL (4.0-12.0)
[2021-07-24] MEDS ORDERED: Lorazepam 2 MG/ML VIAL ONE (09:44)
== END 2021-07-24 11:05 | disposition short-term general hospital (02) ==
LOC: ERS 23:09
DX: T42.1X2A Poisoning by iminostilbenes, intentional self-harm, initial encounter (principal); F31.9 Bipolar disorder, unspecified; Z79.899 Other long term (current) drug therapy
CPT/HCPCS: 36415; 80053; 80156; 80306; 80307; 81025; 85025; 93005; 96374; J2060; U0002

== ENCOUNTER 2022-01-20 23:22 | Emergency (ER) | payer OTHER ==
[2022-01-21 00:11] LABS: Bacteria/HPF None Seen HPF (None Seen); Bilirubin Negative (Negative); Blood, Urine Trace (Negative); Clarity Clear (Clear); Glucose, Urine (Dipstick) Normal (Negative); Ketone, Urine Negative (Negative); Leukocyte Negative Leu/uL (Negative); Nitrite Negative (Negative); Protein, Urine (Dipstick) Negative (Neg-Trace); RBC/HPF 0-3 HPF (0-3); Specific Gravity, Urine 1.003 (1.002-1.036); Squamous Epithelial 0-3 HPF (0-3); Urobilinogen Normal mg/dL (Less than 2); WBC/HPF None Seen HPF (0-3)
[2022-01-21] MEDS ORDERED: Lorazepam 2 MG/ML VIAL ONE (00:47)
[2022-01-21 00:59] LABS: #Basophils 0.1 thou/uL (0.0-0.2); #Eosinphils 0.1 thou/uL (0.0-0.7); #Lymphocytes 2.6 thou/uL (1.20-3.40); #Monocytes 0.4 thou/uL (0.11-0.59); #Neutrophils 4.7 thou/uL (1.40-6.50); %Basophils 0.8 % (0.0-1.0); %Eosinophils 1.2 % (0.0-10.0); %Lymphocytes 32.8 % (21.0-51.0); %Monocytes 4.5 % (0.0-10.0); %Neutrophils 60.7 % (42.0-75.0); Hemoglobin 13.5 g/dL (12.0-16.0); Mean Corpuscular HGB CONC 35.4 g/dL (32.0-36.0); Mean Corpuscular Hemoglobin 34.3 pg (27.0-31.0); Mean Corpuscular Volume 96.7 fL (78.0-98.0); Platelet Count 429 thou/uL (130-400); Red Blood Cell (RBC) Count 3.93 mill/uL (4.20-5.40); White Blood Cell (WBC) Count 7.8 thou/uL (4.8-10.8)
[2022-01-21 01:20] LABS: ALT (SGPT) 30 U/L (8-55); AST (SGOT) 35 U/L (5-34); Albumin 4.2 g/dL (3.5-5.0); Alkaline Phosphatase 104 U/L (40-110); Anion Gap 19 mmol/L (10-20); BUN (Urea Nitrogen) Less than 4 mg/dL (7.0-18.7); Bilirubin, Total 0.2 mg/dL (0.2-1.2); Calc. Creatinine Clearance 0 mL/min (70-130); Calcium 8.5 mg/dL (7.8-10.44); Carbon Dioxide 22 mmol/L (22-29); Chloride 94 mmol/L (98-107); Globulin 3.9 g/dL (2.4-3.5); Glucose 146 mg/dL (70-105); Lipase 13 U/L (8-78); Potassium 3.1 mmol/L (3.5-5.1); Protein, Total 8.1 g/dL (6.0-8.3); Sodium 132 mmol/L (136-145)
[2022-01-21 01:26] LABS: PTT 31.8 sec (22.9-36.1); Prothrombin Time 12.9 sec (12.0-14.7)
== END 2022-01-21 02:28 | disposition home or self-care (01) ==
LOC: ERS 23:22
DX: R11.10 Vomiting, unspecified (principal); F10.10 Alcohol abuse, uncomplicated
CPT/HCPCS: 36415; 80053; 81003; 81015; 83690; 85025; 85610; 85730; 96374; J2060

== ENCOUNTER 2022-03-18 17:42 | Emergency (ER) | payer OTHER ==
[2022-03-18 18:53] LABS: %Basophils 0.6 % (0.0-1.0); %Lymphocytes 34.1 % (21.0-51.0); %Monocytes 8.8 % (0.0-10.0); %Neutrophils 54.5 % (42.0-75.0); Hemoglobin 11.7 g/dL (12.0-16.0); Mean Corpuscular HGB CONC 34.4 g/dL (32.0-36.0); Mean Corpuscular Hemoglobin 34.3 pg (27.0-31.0); Mean Corpuscular Volume 99.8 fL (78.0-98.0); Mean Platelet Volume 6.7 fL (7.4-10.4); Platelet Count 314 thou/uL (130-400); RBC Distribution Width 11.6 % (11.5-14.5); Red Blood Cell (RBC) Count 3.41 mill/uL (4.20-5.40); White Blood Cell (WBC) Count 7.4 thou/uL (4.8-10.8)
[2022-03-18 18:55] LABS: Amphetamine Not Detected (NotDetected); Barbiturates Screen Not Detected (NotDetected); Benzodiazepine Screen Not Detected (NotDetected); Cocaine Metabolite Screen Not Detected (NotDetected); Methadone Not Detected (NotDetected); Methamphetamine Not Detected (NotDetected); Opiate Screen Not Detected (NotDetected); Oxycodone Screen Not Detected (NotDetected); Phencyclidine (PCP) Not Detected (NotDetected); THC/Cannabinoid Screen Not Detected (NotDetected); Tricyclic Screen Not Detected (NotDetected)
[2022-03-18 19:06] LABS: ALT (SGPT) 14 U/L (8-55); AST (SGOT) 16 U/L (5-34); Albumin 3.7 g/dL (3.5-5.0); Alkaline Phosphatase 72 U/L (40-110); Anion Gap 17 mmol/L (10-20); BUN (Urea Nitrogen) 5 mg/dL (7.0-18.7); Bilirubin, Total 0.2 mg/dL (0.2-1.2); Calc. Creatinine Clearance 0 mL/min (70-130); Calcium 8.2 mg/dL (7.8-10.44); Carbon Dioxide 22 mmol/L (22-29); Chloride 99 mmol/L (98-107); Estimated GFR 122; Globulin 3.2 g/dL (2.4-3.5); Glucose 89 mg/dL (70-105); Potassium 3.5 mmol/L (3.5-5.1); Protein, Total 6.9 g/dL (6.0-8.3); Sodium 134 mmol/L (136-145)
[2022-03-18 19:07] LABS: Acetaminophen Less than 10.0 mcg/mL (10.0-30.0); Alcohol Less than 10 mg/dL (Less than 10); Magnesium 1.6 mg/dL (1.6-2.6); Salicylate Less than 8.0 mg/dL (15.0-30.0)
[2022-03-18 19:23] LABS: Bacteria/HPF None Seen HPF (None Seen); Bilirubin Negative (Negative); Blood, Urine Trace (Negative); Clarity Clear (Clear); Glucose, Urine (Dipstick) Normal (Negative); Ketone, Urine Negative (Negative); Leukocyte Negative Leu/uL (Negative); Nitrite Negative (Negative); Protein, Urine (Dipstick) Negative (Neg-Trace); RBC/HPF 0-3 HPF (0-3); Specific Gravity, Urine 1.009 (1.002-1.036); Squamous Epithelial 0-3 HPF (0-3); Urobilinogen Normal mg/dL (Less than 2); WBC/HPF 0-3 HPF (0-3); pH, Urine 6.5 (5.0-9.0)
[2022-03-18 19:26] LABS: Pregnancy Test - Urine (BHCG) Negative (Negative); Pregu Control Background? CLEAR/WHITE (CLR/WHITE); Pregu Control Bar Appear? YES (CONTROL BAR); Specific Gravity 1.009 (1.002-1.036)
[2022-03-18 21:05] LABS: #Eosinphils 0.1 thou/uL (0.0-0.7); #Lymphocytes 2.5 thou/uL (1.20-3.40); #Monocytes 0.7 thou/uL (0.11-0.59)
[2022-03-18 21:37] LABS: Carbamazepine-Tegretol 19.4 ug/mL (4.0-12.0)
[2022-03-19 03:37] LABS: Carbamazepine-Tegretol 17.4 ug/mL (4.0-12.0)
== END 2022-03-19 10:39 ==
LOC: ERS 17:42
DX: T42.1X2A Poisoning by iminostilbenes, intentional self-harm, initial encounter (principal); R45.851 Suicidal ideations
CPT/HCPCS: 36415; 51701; 80053; 80156; 80306; 80307; 81003; 81015; 81025; 83735; 85025; 93005

== ENCOUNTER 2023-07-04 16:33 | Emergency (ER) | payer OTHER ==
[2023-07-04] MEDS ORDERED: levETIRAcetam 500 MG/5 ML VIAL ONE (17:18)
[2023-07-04] MEDS ORDERED: LORazepam 2 MG/ML SYR.(CARPUJECT) ONE (17:18)
[2023-07-04 17:44] LABS: #Basophils 0.1 thou/uL (0.0-0.2); #Eosinphils 0.1 thou/uL (0.0-0.7); #Monocytes 0.6 thou/uL (0.11-0.59); #Neutrophils 6.8 thou/uL (1.40-6.50); %Basophils 0.6 % (0.0-1.0); %Eosinophils 0.7 % (0.0-10.0); %Lymphocytes 19.6 % (21.0-51.0); %Neutrophils 72.5 % (42.0-75.0); Hematocrit 34.5 % (36.0-47.0); Mean Corpuscular HGB CONC 34.8 g/dL (32.0-36.0); Mean Platelet Volume 8.8 fL (7.4-10.4); Platelet Count 378 10x3/uL (130-400); RBC Distribution Width 11.6 % (11.5-14.5); Red Blood Cell (RBC) Count 3.75 mill/uL (4.20-5.40); White Blood Cell (WBC) Count 9.4 10x3/uL (4.8-10.8)
[2023-07-04 17:59] LABS: BHCG - Serum Negative (NEGATIVE); Pregs Control Background? CLEAR/WHITE (CLR/WHITE); Pregs Control Bar Appear? YES (CONTROL BAR)
[2023-07-04 18:11] LABS: ALT (SGPT) 10 U/L (8-55); AST (SGOT) 11 U/L (5-34); Albumin 4.1 g/dL (3.5-5.0); Alkaline Phosphatase 98 U/L (40-110); Anion Gap 16 mmol/L (10-20); BUN (Urea Nitrogen) 4 mg/dL (7.0-18.7); Bilirubin, Total 0.3 mg/dL (0.2-1.2); Calc. Creatinine Clearance 0 mL/min (70-130); Calcium 8.4 mg/dL (7.8-10.44); Carbon Dioxide 23 mmol/L (22-29); Chloride 94 mmol/L (98-107); Estimated GFR 121; Glucose 123 mg/dL (70-105); Potassium 3.3 mmol/L (3.5-5.1); Protein, Total 7.1 g/dL (6.0-8.3); Sodium 130 mmol/L (136-145)
[2023-07-04 18:12] LABS: Acetaminophen Less than 10 mcg/mL (10.0-30.0); Alcohol Less than 10.0 mg/dL (Less than 10); Salicylate Less than 8.0 mg/dL (15.0-30.0)
== END 2023-07-04 19:09 | disposition home or self-care (01) ==
LOC: ERS 16:33
DX: G40.909 Epilepsy, unspecified, not intractable, without status epilepticus (principal)
CPT/HCPCS: 36415; 70450; 80053; 80307; 84703; 85025; 93005; 96361; 96365; 96375; J1953; J2060

== ENCOUNTER 2024-08-04 07:34 | Emergency (ER) | payer OTHER ==
[2024-08-04 08:12] LABS: #Basophils 0.03 10x3/uL (0.0-0.2); %Basophils 0.2 % (0.0-1.0); %Eosinophils 0.6 % (0.0-10.0); %Lymphocytes 13.4 % (21.0-51.0); %Monocytes 4.2 % (0.0-10.0); Hematocrit 30.7 % (36.0-47.0); Hemoglobin 10.9 g/dL (12.0-16.0); Mean Corpuscular HGB CONC 35.5 g/dL (32.0-36.0); Mean Corpuscular Hemoglobin 31.1 pg (27.0-31.0); Mean Corpuscular Volume 87.5 fL (78.0-98.0); Mean Platelet Volume 9.6 fL (7.4-10.4); Platelet Count 327 10x3/uL (130-400); Red Blood Cell (RBC) Count 3.51 mill/uL (4.20-5.40)
[2024-08-04] MEDS ORDERED: Lorazepam 2 MG/ML VIAL ONE (08:28)
[2024-08-04 08:31] LABS: ALT (SGPT) Less than 5 U/L (8-55); AST (SGOT) 9 U/L (5-34); Albumin 2.6 g/dL (3.5-5.0); Alkaline Phosphatase 71 U/L (40-110); Anion Gap 15 mmol/L (10-20); BUN (Urea Nitrogen) 4 mg/dL (7.0-18.7); Bilirubin, Total 0.3 mg/dL (0.2-1.2); Calc. Creatinine Clearance 0 mL/min (70-130); Calcium 8.2 mg/dL (7.8-10.44); Carbon Dioxide 19 mmol/L (22-29); Chloride 103 mmol/L (98-107); Estimated GFR 123; Glucose 118 mg/dL (70-105); Protein, Total 6.6 g/dL (6.0-8.3); Sodium 134 mmol/L (136-145)
== END 2024-08-04 10:52 | disposition short-term general hospital (02) ==
LOC: ERS 07:34
DX: O9A.212 Injury, poisoning and certain other consequences of external causes complicating pregnancy, second trimester (principal); S39.91XA Unspecified injury of abdomen, initial encounter; O99.352 Diseases of the nervous system complicating pregnancy, second trimester; G40.909 Epilepsy, unspecified, not intractable, without status epilepticus; Z3A.22 22 weeks gestation of pregnancy
CPT/HCPCS: 70450; 80053; 85025; 93005; 94760; J2060

== ENCOUNTER 2024-08-26 13:16 | Outpatient (CLI) | payer OTHER | END 2024-08-26 13:17 | disposition home or self-care (01) | LOC: BICULT 13:16 | DX: Z33.1 Pregnant state, incidental (principal); Z3A.27 27 weeks gestation of pregnancy | CPT/HCPCS: 76805 ==

== ENCOUNTER 2024-09-23 07:59 | Emergency (ER) | payer OTHER ==
[2024-09-23] MEDS ORDERED: Lorazepam 2 MG/ML VIAL ONE (09:05)
[2024-09-23 10:10] LABS: #Basophils 0.05 10x3/uL (0.0-0.2); %Basophils 0.4 % (0.0-1.0); %Eosinophils 0.3 % (0.0-10.0); %Monocytes 4.2 % (0.0-10.0); %Neutrophils 69.6 % (42.0-75.0); Hematocrit 31.5 % (36.0-47.0); Hemoglobin 10.8 g/dL (12.0-16.0); Mean Corpuscular HGB CONC 34.3 g/dL (32.0-36.0); Mean Corpuscular Volume 87.5 fL (78.0-98.0); Mean Platelet Volume 9.1 fL (7.4-10.4); Platelet Count 383 10x3/uL (130-400); RBC Distribution Width 12.8 % (11.5-14.5)
[2024-09-23 10:27] LABS: Bilirubin Negative (Negative); Blood, Urine Negative (Negative); Clarity Clear (Clear); Glucose, Urine (Dipstick) Normal (Negative); Ketone, Urine Negative (Negative); Leukocyte Negative Leu/uL (Negative); Nitrite Negative (Negative); Protein, Urine (Dipstick) 30 mg/dL (Neg-Trace); RBC/HPF 0-3 HPF (0-3); Specific Gravity, Urine 1.006 (1.002-1.036); Squamous Epithelial 0-3 HPF (0-3); Urobilinogen Normal mg/dL (Less than 2); WBC/HPF 0-3 HPF (0-3)
[2024-09-23 10:28] LABS: Bacteria/HPF 1+ HPF (None Seen)
[2024-09-23 10:30] LABS: ALT (SGPT) Less than 7 U/L (Less than 34); AST (SGOT) 18 U/L (11-34); Albumin 2.8 g/dL (3.1-4.5); Alkaline Phosphatase 114 U/L (40-110); Anion Gap 13 mmol/L (10-20); BUN (Urea Nitrogen) Less than 4 mg/dL (7.0-18.7); Bilirubin, Total 0.5 mg/dL (0.3-1.2); Calc. Creatinine Clearance 0 mL/min (70-130); Calcium 8.6 mg/dL (7.8-10.44); Carbon Dioxide 23 mmol/L (22-29); Chloride 103 mmol/L (98-107); Estimated GFR 124; Globulin 4.7 g/dL (2.4-3.5); Glucose 100 mg/dL (70-105); Potassium 3.3 mmol/L (3.5-5.1); Protein, Total 7.5 g/dL (6.0-8.3); Sodium 136 mmol/L (136-145)
[2024-09-23] MEDS ORDERED: levETIRAcetam 500 MG (5 mL) VIAL ONE (11:46)
[2024-09-23] MEDS ORDERED: Magnesium 2 GM/50 ML BAG (IN WATER) ONE ×2 (12:59→14:48)
== END 2024-09-23 13:09 | disposition short-term general hospital (02) ==
LOC: ERS 07:59
DX: O99.353 Diseases of the nervous system complicating pregnancy, third trimester (principal); Z3A.30 30 weeks gestation of pregnancy; Z79.899 Other long term (current) drug therapy; Z79.82 Long term (current) use of aspirin; O09.93 Supervision of high risk pregnancy, unspecified, third trimester; G40.909 Epilepsy, unspecified, not intractable, without status epilepticus
CPT/HCPCS: 36415; 36416; 80053; 80175; 80177; 81001; 85025; 93005; 93010; 94760; 96365; 96367; 96375; 96376; 99283; J1953; J2060; J3475

== ENCOUNTER 2025-04-20 23:31 | Observation (INO) | payer MEDICAID, OTHER ==
[2025-04-21 00:32] LABS: #Basophils 0.07 10x3/uL (0.0-0.2); #Eosinophils 0.20 10x3/uL (0.0-0.7); #Monocytes 0.65 10x3/uL (0.11-0.59); #Neutrophils 4.05 10x3/uL (1.40-6.50); %Basophils 0.8 % (0.0-1.0); %Eosinophils 2.4 % (0.0-10.0); %Lymphocytes 39.6 % (21.0-51.0); %Monocytes 7.9 % (0.0-10.0); %Neutrophils 49.1 % (42.0-75.0); Hematocrit 32.7 % (36.0-47.0); Hemoglobin 10.0 g/dL (12.0-16.0); Mean Corpuscular Hemoglobin 24.8 pg (27.0-31.0); Mean Corpuscular Volume 81.1 fL (78.0-98.0); Platelet Count 388 10x3/uL (130-400); Red Blood Cell (RBC) Count 4.03 mill/uL (4.20-5.40); White Blood Cell (WBC) Count 8.26 10x3/uL (4.8-10.8)
[2025-04-21 00:46] LABS: BHCG - Serum Negative (NEGATIVE); Pregs Control Background? CLEAR/WHITE (CLR/WHITE); Pregs Control Bar Appear? YES (CONTROL BAR)
[2025-04-21 00:51] LABS: ALT (SGPT) 7 U/L (Less than 34); AST (SGOT) 22 U/L (11-34); Albumin 3.3 g/dL (3.1-4.5); Alkaline Phosphatase 91 U/L (40-110); Anion Gap 13 mmol/L (10-20); BUN (Urea Nitrogen) 8 mg/dL (7.0-18.7); Bilirubin, Total 0.1 mg/dL (0.3-1.2); Calc. Creatinine Clearance 0 mL/min (70-130); Calcium 8.6 mg/dL (7.8-10.44); Carbon Dioxide 25 mmol/L (22-29); Chloride 104 mmol/L (98-107); Globulin 4.0 g/dL (2.4-3.5); Glucose 111 mg/dL (70-105); Magnesium 2.0 mg/dL (1.6-2.6); Potassium 3.5 mmol/L (3.5-5.1); Sodium 138 mmol/L (136-145)
[2025-04-21 00:52] LABS: Acetaminophen Less than 10 mcg/mL (Less than 10); Salicylate Less than 8.0 mg/dL (Less than 8.0)
[2025-04-21 02:33] LABS: Carbamazepine-Tegretol 13.7 ug/mL (4.0-12.0)
[2025-04-21 04:39] LABS: Carbamazepine-Tegretol 17.6 ug/mL (4.0-12.0)
[2025-04-21] MEDS ORDERED: Acetaminophen 325 MG TAB PO PRN (07:48)
[2025-04-21] MEDS ORDERED: Senokot S 8.6-50 MG TAB PO PRN (07:48)
[2025-04-21 09:23] LABS: Carbamazepine-Tegretol 17.1 ug/mL (4.0-12.0)
[2025-04-21] MEDS ORDERED: Famotidine/PF 20 mg/2ml Vial ONE (11:56)
[2025-04-21] MEDS ORDERED: Famotidine 20 MG TAB ONE (11:56)
[2025-04-21] MEDS: Famotidine/PF 20 mg/2ml Vial SLOW IVP SCH (12:09)
[2025-04-21] MEDS: Famotidine 20 MG TAB PO SCH (12:09)
[2025-04-21 13:04] LABS: Bacteria/HPF 1+ HPF (None Seen); CAUTI Indications for Culture Dysuria,urgency,freq; Glucose, Urine (Dipstick) Normal (Negative); Leukocyte Negative Leu/uL (Negative); Protein, Urine (Dipstick) Negative (Neg-Trace); RBC/HPF None Seen HPF (0-3); Specific Gravity, Urine 1.020 (1.002-1.036); WBC/HPF 0-3 HPF (0-3)
[2025-04-21 13:05] LABS: Urine Culture Reflex No No
[2025-04-21 13:12] LABS: Cocaine Metabolite Screen Negative (Negative); THC/Cannabinoid Screen Negative (Negative); Tricyclic Screen Negative (Negative)
[2025-04-21 14:29] LABS: Magnesium 1.8 mg/dL (1.6-2.6)
[2025-04-21 15:54] LABS: Carbamazepine-Tegretol 16.5 ug/mL (4.0-12.0)
[2025-04-21 18:36] LABS: Anion Gap 14 mmol/L (10-20); BUN (Urea Nitrogen) 5 mg/dL (7.0-18.7); Calc. Creatinine Clearance 203 mL/min (70-130); Calcium 8.2 mg/dL (7.8-10.44); Carbamazepine-Tegretol 14.6 ug/mL (4.0-12.0); Carbon Dioxide 23 mmol/L (22-29); Chloride 99 mmol/L (98-107); Glucose 104 mg/dL (70-105); Magnesium 1.7 mg/dL (1.6-2.6); Potassium 3.6 mmol/L (3.5-5.1); Sodium 132 mmol/L (136-145)
[2025-04-21 20:48] LABS: Carbamazepine-Tegretol 12.2 ug/mL (4.0-12.0)
[2025-04-22 02:27] LABS: Carbamazepine-Tegretol 10.7 ug/mL (4.0-12.0)
[2025-04-22 04:10] LABS: Anion Gap 12 mmol/L (10-20); BUN (Urea Nitrogen) 4 mg/dL (7.0-18.7); Calc. Creatinine Clearance 210 mL/min (70-130); Calcium 8.0 mg/dL (7.8-10.44); Carbon Dioxide 25 mmol/L (22-29); Chloride 98 mmol/L (98-107); Glucose 102 mg/dL (70-105); Potassium 3.5 mmol/L (3.5-5.1); Sodium 131 mmol/L (136-145)
[2025-04-22 04:15] LABS: Carbamazepine-Tegretol 9.8 ug/mL (4.0-12.0)
[2025-04-22 08:02] LABS: Carbamazepine-Tegretol 9.7 ug/mL (4.0-12.0)
[2025-04-22 12:22] LABS: Carbamazepine-Tegretol 8.6 ug/mL (4.0-12.0)
[2025-04-22 16:06] VITALS: BP 123/74; TEMP 98
[2025-04-22 18:01] VITALS: BMI 36.2
== END 2025-04-22 18:06 ==
LOC: ERS 23:31 → ERHOLD 04-21 08:02 → PCU 04-21 16:48
PROVIDERS: ADMIT Family Medicine; ATTEND Hospitalist
DX: T42.6X2A Poisoning by other antiepileptic and sedative-hypnotic drugs, intentional self-harm, initial encounter (principal); G40.909 Epilepsy, unspecified, not intractable, without status epilepticus; F31.9 Bipolar disorder, unspecified; Z79.899 Other long term (current) drug therapy
CPT/HCPCS: 36415; 36416; 80048; 80053; 80156; 80306; 80307; 81001; 83735; 84703; 85025; 93005; 93010; 96375; 99285; G0378; J1308; J7042

== ENCOUNTER 2025-07-21 20:40 | Emergency (ER) | payer MEDICAID ==
[2025-07-21 21:06] LABS: #Basophils 0.07 10x3/uL (0.0-0.2); #Eosinophils 0.04 10x3/uL (0.0-0.7); #Monocytes 0.41 10x3/uL (0.11-0.59); #Neutrophils 6.91 10x3/uL (1.40-6.50); %Basophils 0.7 % (0.0-1.0); %Eosinophils 0.4 % (0.0-10.0); %Lymphocytes 21.0 % (21.0-51.0); %Monocytes 4.3 % (0.0-10.0); %Neutrophils 73.1 % (42.0-75.0); Hematocrit 32.7 % (36.0-47.0); Hemoglobin 10.5 g/dL (12.0-16.0); Mean Corpuscular Hemoglobin 26.4 pg (27.0-31.0); Mean Corpuscular Volume 82.2 fL (78.0-98.0); Platelet Count 361 10x3/uL (130-400); Red Blood Cell (RBC) Count 3.98 mill/uL (4.20-5.40); White Blood Cell (WBC) Count 9.47 10x3/uL (4.8-10.8)
[2025-07-21 21:43] LABS: Lipase 25 U/L (8-78)
[2025-07-21 21:45] LABS: ALT (SGPT) 9 U/L (Less than 34); AST (SGOT) 15 U/L (11-34); Acetaminophen Less than 10 mcg/mL (Less than 10); Albumin 3.3 g/dL (3.1-4.5); Alkaline Phosphatase 90 U/L (40-110); Anion Gap 13 mmol/L (10-20); BUN (Urea Nitrogen) 7 mg/dL (7.0-18.7); Bilirubin, Total 0.1 mg/dL (0.3-1.2); Calc. Creatinine Clearance 0 mL/min (70-130); Calcium 8.2 mg/dL (7.8-10.44); Carbon Dioxide 22 mmol/L (22-29); Chloride 102 mmol/L (98-107); Globulin 3.7 g/dL (2.4-3.5); Glucose 113 mg/dL (70-105); Potassium 3.7 mmol/L (3.5-5.1); Salicylate Less than 8.0 mg/dL (Less than 8.0); Sodium 133 mmol/L (136-145)
== END 2025-07-22 01:16 | disposition home or self-care (01) ==
LOC: ERS 20:40
DX: R56.9 Unspecified convulsions (principal); D64.9 Anemia, unspecified
CPT/HCPCS: 70450; 72125; 80053; 80307; 83690; 84484; 85025; 93005